=== PATIENT | female | born 1960 | race Caucasian/White ===

== ENCOUNTER → 2016-04-21 | Outpatient (CLI) | payer BC ==
[~2016-04-21] MED LIST: ACET-1256 PO; ACET-1311 PO; ALBU18002 INH; ALBU1AER9 INH; ALBUAER INH; ALPH150C PO; B-COTAB53 PO; BENEFIBER PO; CARI350T27 PO; CHOL100027 PO; CHOL1CAP13 PO; CPRDOTS OTB; CYAN100073 PO; DICY10CA55 PO; DLN100 PO; DULO60CA44 PO; FLUT0.0529 NAE; FLUT0.15 NAE; FLUV100T12 PO; GABA-113 PO; LACT3000 PO; LAMO200T38 PO; LISI10TA PO; LSN5 PO; MECL1TAB42 PO; META1TAB22 PO; MULT-506 PO; NRN/300 PO; NSNN50 NAE; NXM/40 PO; POTA10CA28 PO; RIFA550T2 PO; TELM80TA4 PO; TRMCR180 TOP; TYLER650 PO; VNTHFA/IN INH; ZNTT/150 PO
[2016-04-21 11:52] LABS: BASO % 0.5 %; BASO ABS # 0.03 K/uL (0-0.2); COMPLETE YES; EOS % 1.6 %; HEMATOCRIT 41.2 % (37-47); IG% 0.2 %; LYMPH % 21.5 %; LYMPH ABS # 1.22 K/uL (1.2-3.4); MEAN CELL VOLUME 86.4 fL (80-100); MEAN CORPUSCULAR HEMOGLOBIN 30.2 pg (25-34); MEAN PLATELET VOLUME 10.9 fL (7.4-10.4); MONO % 7.1 %; NEUT % 69.1 %; PLATELET COUNT 219 K/uL (130-400); RED BLOOD COUNT 4.77 M/uL (4.2-5.4); WHITE BLOOD COUNT 5.67 K/uL (4.8-10.8)
[2016-04-21 11:59] LABS: ESTIMATED AVERAGE GLUCOSE 100 mg/dl; HA1C FLAG Normal (Normal)
[2016-04-21 12:15] LABS: BLOOD UREA NITROGEN 13 mg/dl (7-18); BUN/CREATININE RATIO 18.9 (10-20); CALCIUM 9.3 mg/dl (8.5-10.1); CARBON DIOXIDE 25 mmol/L (21-32); CHLORIDE 108 mmol/L (98-107); GLUCOSE 82 mg/dl (70-99); POTASSIUM 3.8 mmol/L (3.5-5.1); SODIUM 143 mmol/L (136-145)
[2016-04-21 13:33] LABS: LYME DISEASE AB IGG NEG (NEG); LYME DISEASE AB IGM NEG (NEG)
[2016-04-23 02:16] LABS: RAPID PLASMA REAGIN NONREACTIVE (NONREACT)
[2016-04-27 04:37] LABS: ACETYLCHOLINE RECEP MODULATING <1; ACETYLCHOLINE RECEPT BLOCKING <15 % inhibit (<15); ALBUMIN 4.4 G/DL (3.8-4.8); ANTI-CENTROMERE AB <1.0 NEG AI (<1.0 NEG); ANTI-SS-A <1.0 NEG AI (<1.0 NEG); ANTI-SS-B <1.0 NEG AI (<1.0 NEG); DNA ds CRITHIDIA NEGATIVE (NEGATIVE); GAMMA GLOBULIN 0.8 G/DL (0.8-1.7); LEAD BLOOD LESS THAN 1 MCG/DL (0-9); MICROSOMAL AB 56 IU/ML (<9); RECEPTOR BINDING AB <0.30 nmol/L (<=0.30); Sm Antibody <1.0 NEG AI (<1.0 NEG); VIT B1 PLASMA(THIAMIN)**90353 10 nmol/L (8-30); VITAMIN B6** TC 926 15.3 ng/mL (2.1-21.7)
[2016-04-27 16:37] LABS: VIT E ALPHA-TOCOPHEROL 10.2 mg/L (5.7-19.9); VIT E BETA&GAMMA-TOCOPHEROL 1.9 mg/L (<=4.3)
[2016-04-28 02:16] LABS: COBALT 24HR URINE (HMG) 0 mcg/L (< 3); THALLIUM 24 HR URINE 0 mcg/L (< 3)
== END | disposition home or self-care (01) ==
LOC: C.LAB1850 09:25
PROVIDERS: ATTEND Psychiatry & Neurology Neurology
DX: R41.3 Other amnesia (principal); M25.50 Pain in unspecified joint; R53.82 Chronic fatigue, unspecified; G62.9 Polyneuropathy, unspecified; R20.0 Anesthesia of skin; E55.9 Vitamin D deficiency, unspecified

== ENCOUNTER → 2016-05-03 | Outpatient (CLI) | payer BC ==
--- NOTE | 2016-05-03 12:47 | MAMMOGRAPHY REPORT ---
BILATERAL DIGITAL DIAGNOSTIC MAMMOGRAM TOMOSYNTHESIS WITH CAD: 05/03/2016 CLINICAL HISTORY: 55-year-old woman presents after a left breast stereotactic biopsy yielded benign results. She presents for routine screening of the right breast and to follow up probably benign mi crocalcifications in the medial anterior left breast. TECHNIQUE: Bilateral breast tomosynthesis in addition to standard 2D mammography was performed. Spo t magnification left CC and ML views were also obtained. Current study was also evaluated with a mgMEDIAuter Aided Detection (CAD) system. COMPARISON: Comparison is made to exams dated: 11/03/2015 mammogram, 10/12/2015 mammogram, 04/14/2015 m ammogram, 04/07/2015 mammogram - [facility], and 03/19/2007. BREAST COMPOSITION: There are scattered areas of fibroglandular density in both breasts. FINDINGS: There is a stable dumbbell-shaped metallic biopsy marker in the approximate 2:00 anterior left breast. There is a stable lobulated 10 x 5 mm mass with associated faint punctate microcalcifi cations in the upper inner quadrant of the left breast. The microcalcifications are unchanged based on the spot magnification views comparing back to 04/14/2015 the morphology is similar to the biops ied cluster in the lateral breast which yielded benign pathology. These most likely represent fibro cystic changes. No new suspicious mass, architectural distortion or cluster of microcalcifications is seen bilaterally. IMPRESSION: ACR BI-RADS CATEGORY 2: BENIGN Stable mammographic appearance of the breasts, including a stable faint punctate grouping of microca lcifications associated with a benign appearing mass in the medial anterior left breast. This is th ought to correlate with a cyst clusters seen on prior ultrasound and is considered benign. There is no mammographic evidence of malignancy. A 1 year bilateral screening mammogram is recommended. Th e patient has been verbally notified of the results. Approximately 10% of breast cancers are not detected with mammography. A negative mammographic repor t should not delay biopsy if a clinically suggestive mass is present. Porsche Kim M.D. ay/:05/03/2016 12:00:01 Boiler Room Helper: Gertrudis BABCOCK(Yumiko)(Elizabeth), [facility] letter sent: Normal 1/2 BI-RADS Code: ACR BI-RADS Category 2: Benign
== END | disposition home or self-care (01) ==
LOC: C.MAMM 10:40
PROVIDERS: ATTEND Family Medicine
DX: R92.0 Mammographic microcalcification found on diagnostic imaging of breast (principal)

== ENCOUNTER 2016-08-01 11:36 | Emergency (ER) | payer BC ==
[~2016-08-01] VITALS: Ht 170.2 cm; Wt 119.0 kg
[~2016-08-01 11:36] MED LIST changes: -ACET-1256 PO; -ACET-1311 PO; -ALBU18002 INH; -ALPH150C PO; -B-COTAB53 PO; -CHOL1CAP13 PO; -CYAN100073 PO; -DULO60CA44 PO; -FLUT0.15 NAE; -GABA-113 PO; -LACT3000 PO; -LISI10TA PO; -LSN5 PO; -MECL1TAB42 PO; -NRN/300 PO; -POTA10CA28 PO; -TRMCR180 TOP; -TYLER650 PO; -VNTHFA/IN INH; -ZNTT/150 PO
[2016-08-01 11:41] VITALS: TEMP 36.8; Ht 170.2 cm; Wt 119.0 kg
[2016-08-01] MEDS ORDERED: ALUMINUM/MAGNESIUM SUSP 30 ML UDC PO STA (13:36)
[2016-08-01] MEDS ORDERED: LIDOCAINE HCL 2% VISC SOLN 20 ML UDC PO STA (13:36)
[2016-08-01 14:03] LABS: BASO % 0.6 %; BASO ABS # 0.03 K/uL (0-0.2); COMPLETE YES; EOS % 1.6 %; HEMATOCRIT 39.6 % (37-47); IG% 0.2 %; LYMPH % 27.7 %; LYMPH ABS # 1.39 K/uL (1.2-3.4); MEAN CELL VOLUME 88.4 fL (80-100); MEAN CORPUSCULAR HEMOGLOBIN 30.1 pg (25-34); MEAN CORPUSCULAR HGB CONC 34.1 g/dl (32-36); MEAN PLATELET VOLUME 10.9 fL (7.4-10.4); MONO % 6.8 %; NEUT % 63.1 %; PLATELET COUNT 235 K/uL (130-400); RED BLOOD COUNT 4.48 M/uL (4.2-5.4); WHITE BLOOD COUNT 5.01 K/uL (4.8-10.8)
[2016-08-01 14:04] LABS: POINT OF CARE PRO-BNP 264 pg/ml (0-900); POINT OF CARE TROPONIN I < 0.030 ng/ml (0-0.045)
--- NOTE | 2016-08-01 14:06 | DIAGNOSTIC IMAGING REPORT ---
SINGLE VIEW CHEST CLINICAL HISTORY: Atypical chest pain. FINDINGS: An AP, portable, upright chest radiograph is compared to study dated 02/14/2012. The examination is degraded by portable technique and patient rotation. The cardiomediastinal silhouette is unremarkable. Chronic interstitial thickening is similar to previous. There is minimal bibasilar atelectasis. The lungs and pleural spaces are otherwise clear. No pneumothorax is seen. The skeletal structures appear osteopenic. The bony thorax is grossly intact. IMPRESSION: No acute cardiopulmonary abnormality. Electronically signed by: Tripp Galvan M.D. 08/01/2016 2:04 PM Dictated Date/Time: 08/01/2016 2:03 PM
[2016-08-01 14:09] LABS: BUN/CREATININE RATIO 16.5 (10-20); CALCIUM 8.3 mg/dl (8.5-10.1); CREATININE 0.68 mg/dl (0.60-1.20); POTASSIUM 3.5 mmol/L (3.5-5.1)
[2016-08-01 14:19] LABS: CKMB/CK RATIO 1.1 (0-3.0); THYROID STIMULATING HORMONE 2.43 uIu/ml (0.300-4.500)
[2016-08-01] MEDS ORDERED: VNTHFA/IN INH (14:46)
[2016-08-01] MEDS ORDERED: FLUT0.15 NAE (14:46)
--- NOTE | 2016-08-01 14:46 | EMERGENCY ROOM VISIT NOTE ---
History Report prepared by Litzy: Glo Manzo Under the Supervision of: Dr. Emperatriz Montilla M.D. First contact with patient: 12:38 Chief Complaint: SWELLING TO EXTREMITY Stated Complaint: SWELLING TO BOTH LEGS, CP, NOT FEELING WELL History of Present Illness The patient is a 55 year old female who presents to the Emergency Room with complaints of intermittent bilateral lower extremity edema that started 2 weeks ago. The patient had knee surgery 8 weeks ago which she tolerated well. She is not taking anything for pain. The patient states that the edema is worse after she is on her feet all day at work. She works at [employer]. The patient states that she has experienced the edema only since she started going back to work 2 weeks ago. She is also experiencing increased sweating since she's been back to work. 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 The patient started experiencing chest tightness 5 days ago. She is also experiencing nausea after being on her feet at work for a prolonged amount of time. The patient denies any shortness of breath with exertion, but she states that she gets fatigued quickly. The patient called her PCP's office, but they recommended coming into the ED to rule out blood clots. Source of History: patient Onset: 2 weeks ago Position: leg (bilateral) Quality: other (edema) Timing: intermittent Modifying Factors (Worsening): other (standing at work) Associated Symptoms: + chest pain (tightness), + fatigue, No SOB Note: increased sweating while at work Review of Systems See HPI for pertinent positives & negatives. A total of 10 systems reviewed and were otherwise negative. Past Medical & Surgical Medical Problems: (1) Asthma (2) ATTN DEFICIT W HYPERACT (3) Bilateral tubal ligation (4) Carpal tunnel syndrome (5) Fatty liver (6) History of - section (7) Obsessive-compulsive disorder Family History Cancer Heart disease Hypertension Lung disease Social History Smoking Status: Never Smoker Marital Status: Housing Status: lives with family Occupation Status: employed Current/Historical Medications Scheduled Acetaminophen (Tylenol), 325 MG PO BID Albuterol Hfa (Ventolin Hfa), 2-4 PUFFS INH Q6H Cholecalciferol (Vitamin D 1000 Unit), 2,000 INTER.UNIT PO DAILY Duloxetine Hcl (Cymbalta), 1 CAP PO DAILY Esomeprazole Magnesium (Nexium), 40 MG PO DAILY Potassium Chloride (Micro-K Ext Rel), 10 MEQ PO BID Scheduled PRN Metaxalone (Skelaxin), 800 MG PO TID PRN for MUSCLE SPASMS Miscellaneous Medications Cyanocobalamin (B12) Fluticasone Propionate (Nasal) (Flonase Allergy Relief) Allergies Coded Allergies: No Known Allergies (Unverified , 02/14/12) Physical Exam Vital Signs Date Time Temp Pulse Resp B/P (MAP) Pulse Ox O2 Delivery O2 Flow Rate FiO2 08/01/16 15:09 74 18 140/97 97 Room Air 08/01/16 14:31 76 18 134/91 95 Room Air 08/01/16 13:03 84 18 137/83 97 Room Air 08/01/16 12:30 80 08/01/16 11:41 36.8 88 20 176/103 98 Room Air Physical Exam Vital signs reviewed. General: Well-appearing female, in no significant distress. HEENT: No scleral icterus, PERRLA, neck supple. Atraumatic. Cardiovascular: Regular rate and rhythm, no extra sounds. Pulmonary: Clear to auscultation bilaterally, normal work of breathing. Abdomen: Soft, obese, nontender, nondistended, positive bowel sounds. Musculoskeletal: Atraumatic, minimal nonpitting edema to bilateral lower extremities, no peripheral edema. Neurologic: Patient awake alert and oriented x 3, full strength in all 4 extremities. Cranial nerves 2 through 12 grossly intact. Skin: Warm, dry, no rash Medical Decision & Procedures ER Provider Diagnostic Interpretation: Radiology results as stated below per my review and radiologist interpretation: SINGLE VIEW CHEST FINDINGS: An AP, portable, upright chest radiograph is compared to study dated 02/14/2012. The examination is degraded by portable technique and patient rotation. The cardiomediastinal silhouette is unremarkable. Chronic interstitial thickening is similar to previous. There is minimal bibasilar atelectasis. The lungs and pleural spaces are otherwise clear. No pneumothorax is seen. The skeletal structures appear osteopenic. The bony thorax is grossly intact. IMPRESSION: No acute cardiopulmonary abnormality. Electronically signed by: Tripp Galvan M.D. 08/01/2016 2:04 PM Dictated Date/Time: 08/01/2016 2:03 PM BILATERAL LOWER EXTREMITY VENOUS DOPPLER FINDINGS: There is normal compressibility, flow, and augmentation within the bilateral lower extremity deep venous systems. IMPRESSION: No DVT within the right or left lower extremity. Electronically signed by: Timothy Enamorado M.D. 08/01/2016 3:01 PM Dictated Date/Time: 08/01/2016 3:00 PM Laboratory Results 08/01/16 11:55 Red Blood Count 4.48, Mean Corpuscular Volume 88.4, Mean Corpuscular Hemoglobin 30.1, Mean Corpuscular Hemoglobin Concent 34.1, Mean Platelet Volume 10.9, Neutrophils (%) (Auto) 63.1, Lymphocytes (%) (Auto) 27.7, Monocytes (%) (Auto) 6.8, Eosinophils (%) (Auto) 1.6, Basophils (%) (Auto) 0.6, Neutrophils # (Auto) 3.16, Lymphocytes # (Auto) 1.39, Monocytes # (Auto) 0.34, Eosinophils # (Auto) 0.08, Basophils # (Auto) 0.03 08/01/16 11:55 Test 08/01/16 11:55 08/01/16 13:45 08/01/16 14:30 White Blood Count 5.01 K/uL (4.8-10.8) Red Blood Count 4.48 M/uL (4.2-5.4) Hemoglobin 13.5 g/dL (12.0-16.0) Hematocrit 39.6 % (37-47) Mean Corpuscular Volume 88.4 fL (80-100) Mean Corpuscular Hemoglobin 30.1 pg (25-34) Mean Corpuscular Hemoglobin Concent 34.1 g/dl (32-36) Platelet Count 235 K/uL (130-400) Mean Platelet Volume 10.9 fL (7.4-10.4) Neutrophils (%) (Auto) 63.1 % Lymphocytes (%) (Auto) 27.7 % Monocytes (%) (Auto) 6.8 % Eosinophils (%) (Auto) 1.6 % Basophils (%) (Auto) 0.6 % Neutrophils # (Auto) 3.16 K/uL (1.4-6.5) Lymphocytes # (Auto) 1.39 K/uL (1.2-3.4) Monocytes # (Auto) 0.34 K/uL (0.11-0.59) Eosinophils # (Auto) 0.08 K/uL (0-0.5) Basophils # (Auto) 0.03 K/uL (0-0.2) RDW Standard Deviation 40.3 fL (36.4-46.3) RDW Coefficient of Variation 12.6 % (11.5-14.5) Immature Granulocyte % (Auto) 0.2 % Immature Granulocyte # (Auto) 0.01 K/uL (0.00-0.02) Anion Gap 8.0 mmol/L (3-11) Est Creatinine Clear Calc Drug Dose 127.7 ml/min Estimated GFR () 115.7 Estimated GFR (Non- 99.9 BUN/Creatinine Ratio 16.5 (10-20) Calcium Level 8.3 mg/dl (8.5-10.1) Total Bilirubin 0.4 mg/dl (0.2-1) Direct Bilirubin 0.1 mg/dl (0-0.2) Aspartate Amino Transf (AST/SGOT) 14 U/L (15-37) Alanine Aminotransferase (ALT/SGPT) 22 U/L (12-78) Alkaline Phosphatase 113 U/L (45-117) Total Creatine Kinase 85 U/L (26-192) Creatine Kinase MB 0.9 ng/ml (0.5-3.6) Creatine Kinase MB Ratio 1.1 (0-3.0) Total Protein 7.0 gm/dl (6.4-8.2) Albumin 3.8 gm/dl (3.4-5.0) Thyroid Stimulating Hormone (TSH) 2.430 uIu/ml (0.300-4.500) Bedside Troponin I < 0.030 ng/ml (0-0.045) RA-Qbr-N-Type Natriuretic Peptide 264 pg/ml (0-900) Urine Color YELLOW Urine Appearance CLEAR (CLEAR) Urine pH 6.0 (4.5-7.5) Urine Specific Depue 1.011 (1.000-1.030) Urine Protein NEG (NEG) Urine Glucose (UA) NEG (NEG) Urine Ketones NEG (NEG) Urine Occult Blood NEG (NEG) Urine Nitrite NEG (NEG) Urine Bilirubin NEG (NEG) Urine Urobilinogen NEG (NEG) Urine Leukocyte Esterase NEG (NEG) Laboratory results per my review. Medications Administered Medications (Trade) Dose Ordered Sig/Alejandro Route Start Time Stop Time Status Last Admin Dose Admin Lidocaine HCl (Viscous Lidocaine 2% Soln) 10 ml NOW STAT PO 08/01/16 13:36 08/01/16 13:40 DC 08/01/16 13:54 10 ML Al Hydroxide/Mg Hydroxide (Maalox Susp) 30 ml NOW STAT PO 08/01/16 13:36 08/01/16 13:40 DC 08/01/16 13:54 30 ML ECG Indication: chest pain Rate (beats per minute): 90 Rhythm: normal sinus Findings: T-wave inversion (Inferior), no ectopy Comparison ECG Date: 06/18/2015 Change: no significant change ED Course 1334: Past medical records reviewed. The patient was evaluated in room A12. A complete history and physical examination was performed. 1336: Ordered Maalox Susp 30 ml PO, Lidocaine HCl 10 ml PO 1510: Upon reevaluation, the patient appeared to have improvement of her symptoms. I discussed findings with her. She verbalized agreement of the treatment plan. She was discharged home. Medical Decision Differentials include medication-induced nausea, gastritis, peptic ulcer disease , fluid retention, renal failure, DVT, PE. Medication Reconciliation: I attest that I have personally reviewed the patient' s current medication list. Blood Pressure Screening: Patient was found to have an elevated blood pressure and was referred to their primary doctor for recheck and further treatment. This pt was evaluated and appeared to be in no distress. IV access was obtained and lab work was drawn. Pt was placed on the manager site. US BLE were negative for DVT. Lab work is fairly unrevealing. EKG reveals no significant changes from previous. CXR is clear. Pt was informed of the findings. I suspect she is experiencing dependent edema since return to work, where she stands on her feet. She will wear compression socks and elevated her legs when possible. Pt was asked to f/u with PCP for possible stress testing if indicated She was d/c to the care of her and will return to the ED for worsening of symptoms or any medical concerns. Impression Primary Impression: Peripheral edema Additional Impression: Hypertension Scribe Attestation The scribe's documentation has been prepared under my direction and personally reviewed by me in its entirety. I confirm that the note above accurately reflects all work, treatment, procedures, and medical decision making performed by me. Departure Information Dispostion Home / Self-Care Referrals Lynn Mcclain DO (PCP) Forms HOME CARE DOCUMENTATION FORM, IMPORTANT VISIT INFORMATION, WORK / SCHOOL INSTRUCTIONS Patient Instructions My [facility] Additional Instructions Diagnosis: Peripheral edema, hypertension Please follow-up with your primary care physician for blood pressure recheck and medications if indicated. Continue your other medications as prescribed, avoid aspirin, ibuprofen, Aleve. Wear compression knee high socks (such as Jobst socks or graduated running socks ) while on your feet for prolonged periods of time. Minimize the salt in your diet. Return to the emergency department for worsening of symptoms or any medical concerns. Problem Qualifiers Additional Impression: Hypertension Hypertension type: unspecified secondary hypertension Qualified Codes: I15.9 - Secondary hypertension, unspecified
[2016-08-01] MEDS ORDERED: ACET-1311 PO (14:47)
[2016-08-01] MEDS ORDERED: DULO60CA44 PO (14:47)
[2016-08-01] MEDS ORDERED: CYAN100073 PO (14:47)
[2016-08-01] MEDS ORDERED: POTA10CA28 PO (14:47)
[2016-08-01 14:50] LABS: URINE APPEARANCE CLEAR (CLEAR); URINE BILIRUBIN NEG (NEG); URINE COLOR YELLOW; URINE NITRITE NEG (NEG); URINE SPECIFIC GRAVITY 1.011 (1.000-1.030); UROBILINOGEN NEG (NEG); ZZUR CULT IF INDIC CLEAN CATCH NO
[2016-08-01 14:59] LABS: MANUAL MICROSCOPIC REQUIRED? NO; REVIEW REQ? NO
--- NOTE | 2016-08-01 15:02 | DIAGNOSTIC IMAGING REPORT ---
BILATERAL LOWER EXTREMITY VENOUS DOPPLER HISTORY: Pain. Edema. DVT COMPARISON STUDY: None. FINDINGS: There is normal compressibility, flow, and augmentation within the bilateral lower extremity deep venous systems. IMPRESSION: No DVT within the right or left lower extremity. Electronically signed by: Timothy Enamorado M.D. 08/01/2016 3:01 PM Dictated Date/Time: 08/01/2016 3:00 PM
[2016-08-01 15:09] VITALS: BP 140/97; PULSE 74; O2SAT 97
[2016-10-05] MEDS ORDERED: NRN/300 PO (15:22)
[2016-10-05] MEDS ORDERED: ALPH150C PO (15:22)
[2016-10-05] MEDS ORDERED: B-COTAB53 PO (15:22)
[2016-10-05] MEDS ORDERED: MECL1TAB42 PO (15:22)
[2016-10-05] MEDS ORDERED: LISI10TA PO (15:22)
[2016-10-05] MEDS ORDERED: ACET-1256 PO (15:22)
== END 2016-08-01 15:16 | disposition home or self-care (01) ==
LOC: C.EDB 11:37 → C.EDA 15:16
DX: R60.0 Localized edema (principal); I15.9 Secondary hypertension, unspecified; J45.909 Unspecified asthma, uncomplicated; F90.9 Attention-deficit hyperactivity disorder, unspecified type; F42.9 Obsessive-compulsive disorder, unspecified; Z80.9 Family history of malignant neoplasm, unspecified; Z82.49 Family history of ischemic heart disease and other diseases of the circulatory system; Z83.6 Family history of other diseases of the respiratory system; Z79.899 Other long term (current) drug therapy

== ENCOUNTER → 2016-08-18 | Outpatient (CLI) | payer BC ==
[~2016-08-18] MED LIST changes: +ACET-1256 PO; +ACET-1311 PO; +ALBU18002 INH; -ALBU1AER9 INH; -ALBUAER INH; +ALPH150C PO; +B-COTAB53 PO; -BENEFIBER PO; -CARI350T27 PO; +CHOL1CAP13 PO; -CPRDOTS OTB; +CYAN100073 PO; -DICY10CA55 PO; -DLN100 PO; +DULO60CA44 PO; -FLUT0.0529 NAE; +FLUT0.15 NAE; -FLUV100T12 PO; +GABA-113 PO; +LACT3000 PO; -LAMO200T38 PO; +LISI10TA PO; +LSN5 PO; +MECL1TAB42 PO; -MULT-506 PO; +NRN/300 PO; -NSNN50 NAE; +POTA10CA28 PO; -RIFA550T2 PO; -TELM80TA4 PO; +TRMCR180 TOP; +TYLER650 PO; +VNTHFA/IN INH; +ZNTT/150 PO
--- NOTE | 2016-08-18 10:23 | DIAGNOSTIC IMAGING REPORT ---
DOUBLE CONTRAST BARIUM ESOPHAGRAM CLINICAL HISTORY: Dysphagia. COMPARISON STUDY: No priors.. TECHNIQUE: A standard air contrast barium esophagram is performed. Multiple spot images of the esophagus are acquired both upright and prone. FINDINGS: The patient swallowed barium and the barium pill without difficulty. The mucosal pattern is normal. Mild dysmotility seen in the distal third. There is no evidence of intrinsic or extrinsic mass lesion. Pharyngeal penetration was observed without clear evidence of aspiration. Cough was noted. The gastroesophageal junction distended normally. No gastroesophageal reflux could be elicited by having the patient perform the Valsalva maneuver. Fluoroscopy time: 1.1 minutes. Fluoroscopic images: 31 IMPRESSION: 1. The esophagus is morphologically normal. 2. There was pharyngeal penetration without clear evidence of aspiration. Cough was noted. 3. Mild esophageal dysmotility. Electronically signed by: Tripp Galvan M.D. 08/18/2016 10:22 AM Dictated Date/Time: 08/18/2016 10:18 AM
== END | disposition home or self-care (01) ==
LOC: C.RAD 09:46
PROVIDERS: ATTEND Nurse Practitioner Adult Health
DX: R13.10 Dysphagia, unspecified (principal)

== ENCOUNTER 2016-08-21 15:41 | Emergency (ER) | payer BC ==
[~2016-08-21] VITALS: Ht 167.6 cm; Wt 115.8 kg
[~2016-08-21 15:41] MED LIST changes: -ACET-1256 PO; -ALBU18002 INH; -ALPH150C PO; -B-COTAB53 PO; -CHOL1CAP13 PO; -GABA-113 PO; -LACT3000 PO; -LISI10TA PO; -LSN5 PO; -MECL1TAB42 PO; -NRN/300 PO; -TRMCR180 TOP; -TYLER650 PO; -ZNTT/150 PO
[2016-08-21 15:51] VITALS: TEMP 36.8; Ht 167.6 cm; Wt 115.8 kg
[2016-08-21] MEDS ORDERED: LSN5 PO (17:12)
[2016-08-21] MEDS ORDERED: ZNTT/150 PO (17:12)
[2016-08-21] MEDS ORDERED: ALBU18002 INH (17:12)
[2016-08-21] MEDS ORDERED: GABA-113 PO (17:12)
[2016-08-21] MEDS ORDERED: TRMCR180 TOP (17:12)
[2016-08-21] MEDS ORDERED: TYLER650 PO (17:12)
[2016-08-21] MEDS ORDERED: LACT3000 PO (17:12)
[2016-08-21] MEDS ORDERED: CHOL1CAP13 PO (17:12)
--- NOTE | 2016-08-21 17:25 | DIAGNOSTIC IMAGING REPORT ---
LEFT FOOT 3 VIEWS CLINICAL HISTORY: Left foot pain. FINDINGS: 3 views of the left foot are obtained. No prior studies are available for comparison at the time of dictation. The skeletal structures are osteopenic. No fracture is seen. Mild arthritic change is seen at the first tarsometatarsal and metatarsophalangeal joints. An os peroneum and an os naviculari are incidentally noted. Mild degenerative spurring is seen along the dorsal aspect of the tarsal bones. There are large dorsal and plantar calcaneal enthesophytes. Dorsal soft tissue edema is observed. IMPRESSION: 1. Osteopenia, mild arthritic change, and heel spurs as above. No fracture is identified in the left foot. 2. Dorsal soft tissue swelling. Electronically signed by: Tripp Galvan M.D. 08/21/2016 5:24 PM Dictated Date/Time: 08/21/2016 5:22 PM
--- NOTE | 2016-08-21 17:27 | DIAGNOSTIC IMAGING REPORT ---
RIGHT FOOT 3 VIEWS CLINICAL HISTORY: Right foot pain. FINDINGS: 3 views of the right foot are obtained. No prior studies are available for comparison at the time of dictation. The skeletal structures are osteopenic. No fracture is seen. Mild arthritic change is seen at the first tarsometatarsal and metatarsophalangeal joints. There is a large os naviculari. Mild degenerative spurring is seen along the dorsal aspect of the tarsal bones. There are large dorsal and plantar calcaneal enthesophytes. Mild dorsal soft tissue edema is observed. IMPRESSION: 1. Mild soft tissue swelling with no acute bony abnormality seen in the right foot. 2. Osteopenia, mild arthritic change, and heel spurs as above. Electronically signed by: Tripp Galvan M.D. 08/21/2016 5:26 PM Dictated Date/Time: 08/21/2016 5:24 PM
[2016-08-21 18:28] VITALS: PULSE 89; O2SAT 97
[2016-08-21 18:29] VITALS: BP 140/106
--- NOTE | 2016-08-21 20:01 | EMERGENCY ROOM VISIT NOTE ---
History First contact with patient: 16:42 Chief Complaint: FOOT PAIN Stated Complaint: MAY HAVE FRACTURED BOTH FEET,NEUROPATHY History of Present Illness The patient is a 55 year old female who presents to the Emergency Room with complaints of bilateral foot pain worsening over the past few days. The patient states that she has a history of spontaneous fracture to each of her feet in the past. The patient states that she recently had right knee surgery with return to work this week. The patient feels that she has stumbled several times at work the past 2 days, and now has foot pain that feels like she broke her feet. The patient does have a history of neuropathy and takes 650 mg of Tylenol once in the morning and once in the evening. She has not taken any of this in more than 8 hours. She went to work today, and as she was driving home , her pain worsened, so she came to the emergency department. She does not report distinct fall or other injury. She feels more stable when she walks with her crutches. She rates her current discomfort a 6/10 that worsens with ambulation. Review of Systems More than 10 systems were reviewed and otherwise negative with the exception of history of present illness. Past Medical/Surgical History Medical Problems: (1) Asthma (2) ATTN DEFICIT W HYPERACT (3) Bilateral tubal ligation (4) Carpal tunnel syndrome (5) Fatty liver (6) History of - section (7) Obsessive-compulsive disorder Family History Cancer Heart disease Hypertension Lung disease Social History Smoking Status: Never Smoker Marital Status: Housing Status: lives with family Occupation Status: employed Current/Historical Medications Scheduled Acetaminophen (Tylenol Arthitis Ext Rel), 650 MG PO BID Cholecalciferol (D3), 2,000 UNITS PO QAM Cyanocobalamin (B12), 1,000 MCG PO QAM Duloxetine Hcl (Cymbalta), 1 CAP PO QPM Fluticasone Propionate (Nasal) (Flonase Allergy Relief), 1 SPRAY GIRISH DAILY Gabapentin (Neurontin), 300 MG PO BID AT 1200 & HS Lisinopril (Lisinopril), 5 MG PO QPM Ranitidine (Zantac), 150 MG PO BID Scheduled PRN Albuterol Sulfate (Proair Respiclick), 2 PUFFS INH DAILY PRN for Shortness of Breath Lactase (Lactaid), 1 TAB PO DIRECTED PRN for LACTOSE PRODUCTS Metaxalone (Skelaxin), 800 MG PO TID PRN for MUSCLE SPASMS Triamcinolone Acet (Aristocort 0.1%), 1 APPLN TOP DIRECTED PRN for SKIN AREAS Allergies Coded Allergies: Latex1 -Allergic Contact Dermititis (Verified Allergy, Intermediate, REDDENED RASH, 08/21/16) Physical Exam Vital Signs Date Time Temp Pulse Resp B/P (MAP) Pulse Ox O2 Delivery O2 Flow Rate FiO2 08/21/16 18:29 140/106 08/21/16 18:28 89 16 140/114 97 Room Air 08/21/16 15:51 36.8 93 18 132/79 94 Room Air Pain Rating (0-10): 5.0 Physical Exam VITALS: Vitals are noted on the nurse's note and reviewed by myself. Vital signs stable. GENERAL: Well-developed, well-nourished, white female, who is in no acute distress and resting comfortably. Patient is cooperative with the examination. HEART: Regular rate and rhythm without murmurs gallops or rubs. LUNGS: Clear to auscultation bilaterally without wheezes, rales or rhonchi. No retractions or accessory muscle use. MUSCULOSKELETAL: No laceration, abrasion, or gross deformity of the bilateral feet. There is mild tenderness throughout the superior mid foot of the left foot. There is no plantar aspect tenderness bilaterally. No tenderness throughout the heels or ankles. No gross cellulitis or other evidence of infection. NEURO: Patient was alert and oriented to person place and time. CN II through XII grossly intact. Medical Decision & Procedures ER Provider Diagnostic Interpretation: RIGHT FOOT 3 VIEWS CLINICAL HISTORY: Right foot pain. FINDINGS: 3 views of the right foot are obtained. No prior studies are available for comparison at the time of dictation. The skeletal structures are osteopenic. No fracture is seen. Mild arthritic change is seen at the first tarsometatarsal and metatarsophalangeal joints. There is a large os naviculari. Mild degenerative spurring is seen along the dorsal aspect of the tarsal bones. There are large dorsal and plantar calcaneal enthesophytes. Mild dorsal soft tissue edema is observed. IMPRESSION: 1. Mild soft tissue swelling with no acute bony abnormality seen in the right foot. 2. Osteopenia, mild arthritic change, and heel spurs as above. LEFT FOOT 3 VIEWS CLINICAL HISTORY: Left foot pain. FINDINGS: 3 views of the left foot are obtained. No prior studies are available for comparison at the time of dictation. The skeletal structures are osteopenic. No fracture is seen. Mild arthritic change is seen at the first tarsometatarsal and metatarsophalangeal joints. An os peroneum and an os naviculari are incidentally noted. Mild degenerative spurring is seen along the dorsal aspect of the tarsal bones. There are large dorsal and plantar calcaneal enthesophytes. Dorsal soft tissue edema is observed. IMPRESSION: 1. Osteopenia, mild arthritic change, and heel spurs as above. No fracture is identified in the left foot. 2. Dorsal soft tissue swelling. ED Course Physical exam and history were performed. Nursing notes and EMR were reviewed. Patient appears to have bilateral foot pain worsening over the past one to 2 days. The patient is concerned that she may have broken her feet, as she does have a history of this in the past. X-rays were obtained of both feet and are without evidence of fracture or dislocation. Overall the patient appears well for discharge home. She should increase her usage of [id number] ibuprofen and Tylenol for pain control. She may continue to use her crutches to help with ambulation. Her left foot feels worse than her right, and she will be given a postop shoe. The patient may follow with her orthopedist or primary care physician for further management. She was otherwise invited back to the ER anytime and voiced understanding of this plan. The chart was completed utilizing [employer] Speech Voice Recognition Software. Grammatical errors, random word insertions, pronoun errors, and incomplete sentences are an occasional consequence of this system due to software limitations, ambient noise, and hardware issues. Any formal questions or concerns about the content, text, or information contained within the body of this dictation should be directly addressed to the provider for clarification. . Medical Decision Differential diagnosis includes, but is not limited to: Sprain, strain, fracture , dislocation, subluxation, contusion, and others Impression Primary Impression: Bilateral foot pain Departure Information Dispostion Home / Self-Care Condition GOOD Forms HOME CARE DOCUMENTATION FORM, IMPORTANT VISIT INFORMATION Patient Instructions [facility] Additional Instructions You were seen and evaluated today on an emergency basis only. This is not a substitute for, or an effort to provide, complete comprehensive medical care. It is not possible to recognize and treat all injuries or illnesses in a single emergency department visit. For this reason it is recommended that you followup with your orthopedist by telephone in the morning to arrange a follow-up appointment. Use your postop shoe for additional relief of symptoms. Use your crutches to help ambulate. For baseline pain relief you may alternate ibuprofen and acetaminophen every 4 hours for pain control. Take 600 mg ibuprofen (Advil) and then 4 hours later take 1000 mg acetaminophen (Tylenol). Do not take more than 3000 mg acetaminophen in a single day. Take every precaution to prevent falling You are welcome to return to the emergency department anytime with new, worsening, or concerning symptoms.
[2016-10-05] MEDS ORDERED: LISI10TA PO (15:22)
[2016-10-05] MEDS ORDERED: B-COTAB53 PO (15:22)
[2016-10-05] MEDS ORDERED: ALPH150C PO (15:22)
[2016-10-05] MEDS ORDERED: ACET-1256 PO (15:22)
[2016-10-05] MEDS ORDERED: MECL1TAB42 PO (15:22)
[2016-10-05] MEDS ORDERED: NRN/300 PO (15:22)
== END 2016-08-21 18:46 | disposition home or self-care (01) ==
LOC: C.EDB 15:42 → C.EDD 18:46
DX: M79.671 Pain in right foot (principal); M79.672 Pain in left foot; J45.909 Unspecified asthma, uncomplicated; F90.9 Attention-deficit hyperactivity disorder, unspecified type; G56.00 Carpal tunnel syndrome, unspecified upper limb; K76.0 Fatty (change of) liver, not elsewhere classified; Z82.49 Family history of ischemic heart disease and other diseases of the circulatory system

== ENCOUNTER → 2016-09-16 | Outpatient (CLI) | payer BC ==
[~2016-09-16] MED LIST changes: +ACET-1256 PO; -ACET-1311 PO; +ALBU18002 INH; +ALPH150C PO; +B-COTAB53 PO; -CHOL100027 PO; +CHOL1CAP13 PO; +GABA-113 PO; +LACT3000 PO; +LISI10TA PO; +LSN5 PO; +MECL1TAB42 PO; +NRN/300 PO; -NXM/40 PO; -POTA10CA28 PO; +TRMCR180 TOP; +TYLER650 PO; -VNTHFA/IN INH; +ZNTT/150 PO
[2016-09-16 12:23] LABS: BLOOD UREA NITROGEN 18 mg/dl (7-18); BUN/CREATININE RATIO 24.5 (10-20); CALCIUM 9.1 mg/dl (8.5-10.1); CARBON DIOXIDE 29 mmol/L (21-32); CHLORIDE 108 mmol/L (98-107); CREATININE 0.75 mg/dl (0.60-1.20); GLUCOSE 83 mg/dl (70-99); POTASSIUM 4.1 mmol/L (3.5-5.1); SODIUM 141 mmol/L (136-145)
[2016-09-16 12:33] LABS: CHOLESTEROL 181 mg/dl (0-200); CHOLESTEROL/HDL RATIO 2.7; HDL CHOLESTEROL 68 mg/dl; LDL CHOLESTEROL CALCULATED 101 mg/dl; TRIGLYCERIDES 60 mg/dl (0-150); VERY LOW DENSITY LIPOPROT CALC 12 mg/dl
== END | disposition home or self-care (01) ==
LOC: C.LAB 09:43
PROVIDERS: ATTEND Nurse Practitioner Adult Health
DX: Z00.00 Encounter for general adult medical examination without abnormal findings (principal); I10 Essential (primary) hypertension; M79.671 Pain in right foot; M79.672 Pain in left foot

== ENCOUNTER → 2016-10-18 | Day surgery (SDC) | payer BC ==
[2016-10-05 15:23] VITALS: Ht 170.2 cm; Wt 113.6 kg
[~2016-10-18] VITALS: Ht 170.2 cm; Wt 113.6 kg
[~2016-10-18] MED LIST changes: +ATROPINE SULFATE 0.1 MG/ML 5ML SYR IV PRN; +EpHEDrine SULFATE INJ 50 MG/ML AMP IV PRN; +LIDOCAINE HCL 2% 2 ML VIAL (20MG/ML) ONE; -LSN5 PO; +MIDAZOLAM HCL 1 MG/ML 2ML VIAL ONE; +ONDANSETRON INJ 2 MG/ML 2 ML VIAL ONE; +PROPOFOL IV EMULSION 10 MG/ML 20 ML VIAL IV ONE; +SODIUM CHLORIDE 0.9% 500ML 500 ML IV ONE; -TYLER650 PO
--- NOTE | 2016-10-18 10:27 | Endo History and Physical ---
History & Physical Date of Service: Oct 18, 2016. Chief Complaint: Abn barium, dysphagia, reflux Referring Physician: Gerda Butcher History of Present Illness 56 yo CF who presents for EGD secondary to abnormal barium swallow, dysphagia and GERD. Past Surgical History Hx Cardiac Surgery: No Hx Internal Defibrillator: No Hx Pacemaker: No Hx Abdominal Surgery: Yes () Hx of Implantable Prosthesis: No Hx Post-Op Nausea and Vomiting: No Hx Cancer Surgery: No Hx Thoracic Surgery: No Hx Orthopedic: Yes (RT CTR, RT ELBOW SURGERY, LT/RT KNEE SURGERY) Hx Urinary Tract Surgery: Yes (BLADDER RESHAPING AGE 24 YEARS OLD) Family History IBD Social History Smoking Status: Never Smoker Hx Substance Use: No Hx Alcohol Use: No Allergies Coded Allergies: Latex1 -Allergic Contact Dermititis (Verified Allergy, Intermediate, REDDENED RASH, 10/05/16) Milk (Verified Allergy, Unknown, DIARRHEA, 10/05/16) NO KNOWN DRUG ALLERGIES (Verified Allergy, Unknown, ., 10/05/16) Current Medications Reported Home Medications Medications Dose Route/Sig Max Daily Dose Days Date Category Lipoic Acid (Alpha-Lipoic Acid (Thioctic Ac) 150 Mg Cap 1 Cap PO QAM 10/05/16 Reported B Complex (B-Complex W/ Folic Acid) 1 Tab Tab 1 Tab PO QAM 10/05/16 Reported Tylenol (Acetaminophen) 500 Mg Tab 1-2 Tabs PO Q4-6H PRN 10/05/16 Reported Meclizine Hcl 25 Mg Tab 1 Tab PO TID PRN 10/05/16 Reported Neurontin (Gabapentin) 300 Mg Cap 2 Cap PO HS 10/05/16 Reported Prinivil (Lisinopril) 10 Mg Tab 10 Mg PO QPM 10/05/16 Reported Aristocort 0.1% (Triamcinolone Acet) 240 Appln/80 Gm Cr 1 Appln TOP DIRECTED PRN 08/21/16 Reported Lactaid (Lactase) 3,000 Unit Tab 1 Tab PO UD PRN 08/21/16 Reported Proair Respiclick (Albuterol Sulfate) 108 Mcg/Act Aer 2 Puffs INH DAILY PRN 08/21/16 Reported Zantac (Ranitidine HCl) 150 Mg Tab 150 Mg PO BID 08/21/16 Reported Neurontin (Gabapentin) 300 Mg Cap 300 Mg PO BID 08/21/16 Reported D3 (Cholecalciferol) 2,000 Unit Cap 2,000 Units PO QAM 08/21/16 Reported Cymbalta (Duloxetine Hcl) 60 Mg Cap 1 Cap PO QPM 08/01/16 Reported B12 (Cyanocobalamin) 1,000 Mcg Tab 1,000 Mcg PO QAM 08/01/16 Reported Flonase Allergy Relief (Fluticasone Propionate (Nasal)) 50 Mcg/Act Spr 1 [place] GIRISH DAILY PRN 08/01/16 Reported Skelaxin (Metaxalone) 800 Mg Tab 800 Mg PO TID PRN 06/26/13 Reported Vital Signs Weight (Kilograms): 113.64 Height (Feet): 5 Height (Inches): 7 Date Time Temp Pulse Resp B/P (MAP) Pulse Ox O2 Delivery O2 Flow Rate FiO2 10/18/16 10:19 37 80 20 147/95 (112) 98 Room Air Physical Exam General Appearance: WD/WN, no apparent distress Respiratory/Chest: Auscultation: breath sounds normal Cardiovascular: Heart Auscultation: RRR Abdomen: Bowel Sounds: normal Inspection & Palpation: soft, non-distended, no tenderness, guarding & rebound Assessment and Plan Assessment: 56 yo CF who presents for EGD secondary to abnormal barium swallow, dysphagia and GERD. Plan: Proceed with colonoscopy.
--- NOTE | 2016-10-18 10:49 | Discharge Instructions ---
Endoscopy Patient Instructions Date / Procedure(s) Performed Oct 18, 2016. EGD Allergy Information Coded Allergies: Latex1 -Allergic Contact Dermititis (Verified Allergy, Intermediate, REDDENED RASH, 10/05/16) Milk (Verified Allergy, Unknown, DIARRHEA, 10/05/16) NO KNOWN DRUG ALLERGIES (Verified Allergy, Unknown, ., 10/05/16) Discharge Date / Findings Oct 18, 2016. Hiatal hernia Mid-esophageal biopsies Medication Instructions OK to resume all medications today as prescribed Reported Home Medications Medications Dose Route/Sig Max Daily Dose Days Date Category Lipoic Acid (Alpha-Lipoic Acid (Thioctic Ac) 150 Mg Cap 1 Cap PO QAM 10/05/16 Reported B Complex (B-Complex W/ Folic Acid) 1 Tab Tab 1 Tab PO QAM 10/05/16 Reported Tylenol (Acetaminophen) 500 Mg Tab 1-2 Tabs PO Q4-6H PRN 10/05/16 Reported Meclizine Hcl 25 Mg Tab 1 Tab PO TID PRN 10/05/16 Reported Neurontin (Gabapentin) 300 Mg Cap 2 Cap PO HS 10/05/16 Reported Prinivil (Lisinopril) 10 Mg Tab 10 Mg PO QPM 10/05/16 Reported Aristocort 0.1% (Triamcinolone Acet) 240 Appln/80 Gm Cr 1 Appln TOP DIRECTED PRN 08/21/16 Reported Lactaid (Lactase) 3,000 Unit Tab 1 Tab PO UD PRN 08/21/16 Reported Proair Respiclick (Albuterol Sulfate) 108 Mcg/Act Aer 2 Puffs INH DAILY PRN 08/21/16 Reported Zantac (Ranitidine HCl) 150 Mg Tab 150 Mg PO BID 08/21/16 Reported Neurontin (Gabapentin) 300 Mg Cap 300 Mg PO BID 08/21/16 Reported D3 (Cholecalciferol) 2,000 Unit Cap 2,000 Units PO QAM 08/21/16 Reported Cymbalta (Duloxetine Hcl) 60 Mg Cap 1 Cap PO QPM 08/01/16 Reported B12 (Cyanocobalamin) 1,000 Mcg Tab 1,000 Mcg PO QAM 08/01/16 Reported Flonase Allergy Relief (Fluticasone Propionate (Nasal)) 50 Mcg/Act Spr 1 [place] GIRISH DAILY PRN 08/01/16 Reported Skelaxin (Metaxalone) 800 Mg Tab 800 Mg PO TID PRN 06/26/13 Reported Provider Instructions Activity Restrictions - No exercising or heavy lifting for 24 hours. - Do not drink alcohol the day of the procedure. - Do not drive a car or operate machinery until the day after the procedure. - Do not make any important decisions or sign important papers in 24 hours after the procedure. Following Day: - Return to full activity which may include returning to work/school. Diet Start your diet with liquids and light foods (jello, soup, juice, toast). Then eat your usual diet if not nauseated. Treatment For Common After Affects For mild abdominal pain, bloating, or excessive gas: - Rest - Eat lightly - Lie on right side Follow-Up Information Follow-up with Gerda Butcher as scheduled Anesthesia Information What You Should Know You have had a procedure that required some medicine to reduce anxiety and discomfort. This treatment is called moderate sedation. After receiving the treatment, you may be sleepy, but you will be able to breathe on your own. The effects of the treatment may last for several hours. Follow these instructions along with Activity/Diet recommendations noted above: * Do NOT do anything where dizziness or clumsiness would be dangerous. * Rest quietly at home today, then you can be up and about tomorrow. * Have a responsible person stay with you the rest of today. * You may have had an I.V. today. If so, you may take the dressing off later today. Recommendations Call your doctor if: * Trouble breathing * Continuous vomiting for more than 24 hours * Temperature above 101 degrees * Severe abdominal pain or bloating * Pain not relieved by pain medicine ordered * There is increased drainage or redness from any incision * A large amount of rectal bleeding greater than 2-3 tablespoons. (If you had a polyp/s removed or have hemorrhoids, a small amount of blood - from the rectum is to be expected.) * You have any unanswered questions or concerns. IN THE EVENT OF A SERIOUS EMERGENCY, GO TO THE NEAREST EMERGENCY ROOM Your discharge instructions were prepared by provider Eric Garcia. Patient Instructions Signature Page Madelyn Alfaro Patient (or Guardian) Signature/Date: I have read and understand the instructions given to me by my caregivers. Caregiver/RN/Doctor Signature/Date: The above-named patient and/or guardian has received patient instructions on this date. + Original Patient Signature Page (only) stays with chart. Please make copy for patient.
--- NOTE | 2016-10-18 10:56 | GI REPORT ---
Procedure Date: 10/18/2016 10:21 AM Procedure: Upper GI endoscopy Indications: Dysphagia Medicines: Monitored Anesthesia Care Complications: No immediate complications. Estimated Blood Loss: Estimated blood loss: none. Procedure: Pre-Anesthesia Assessment: - Prior to the procedure, a History and Physical was performed, and patient medications and allergies were reviewed. The patient's tolerance of previous anesthesia was also reviewed. The risks and benefits of the procedure and the sedation options and risks were discussed with the patient. All questions were answered, and informed consent was obtained. Prior Anticoagulants: The patient has taken no previous anticoagulant or antiplatelet agents. ASA Grade Assessment: II - A patient with mild systemic disease. After reviewing the risks and benefits, the patient was deemed in satisfactory condition to undergo the procedure. After obtaining informed consent, the endoscope was passed under direct vision. Throughout the procedure, the patient's blood pressure, pulse, and oxygen saturations were monitored continuously. The scope was introduced through the mouth, and advanced to the second part of duodenum. The upper GI endoscopy was accomplished without difficulty. The patient tolerated the procedure well. Findings: No endoscopic abnormality was evident in the esophagus to explain the patient's complaint of dysphagia. Biopsies were taken with a cold forceps for histology. A small hiatus hernia was present. The examined duodenum was normal. Impression: - No endoscopic esophageal abnormality to explain patient's dysphagia. Biopsied. - Small hiatus hernia. - Normal examined duodenum. Recommendation: - Resume previous diet. - Continue present medications. - Await pathology results. - Return to primary care physician as previously scheduled. Eric Garcia DO 10/18/2016 10:55:51 AM This report has been signed electronically. Note Initiated On: 10/18/2016 10:21 AM I attest to the content of the Intraoperative Record and orders documented therein, exceptions below
--- NOTE | 2016-10-18 11:22 | Anesthesiology Progress Note ---
Anesthesia Post Op Note Date & Time Oct 18, 2016 at 11:22 Vital Signs Pain Intensity: 0 Vital Signs Past 12 Hours Date Time Temp Pulse Resp B/P (MAP) Pulse Ox O2 Delivery O2 Flow Rate FiO2 10/18/16 11:10 84 20 152/94 (113) 100 Room Air 10/18/16 10:53 87 20 161/92 (115) 97 Room Air 10/18/16 10:19 37 80 20 147/95 (112) 98 Room Air Notes Mental Status: alert / awake / arousable, participated in evaluation Pt Amnestic to Procedure: Yes Nausea / Vomiting: adequately controlled Pain: adequately controlled Airway Patency, RR, SpO2: stable & adequate BP & HR: stable & adequate Hydration State: stable & adequate Anesthetic Complications: no major complications apparent
[2016-10-18 11:25] VITALS: BP 160/80; PULSE 77; O2SAT 99
== END | disposition home or self-care (01) ==
LOC: C.GI 09:52
PROVIDERS: ATTEND Internal Medicine
DX: R13.10 Dysphagia, unspecified (principal); K44.9 Diaphragmatic hernia without obstruction or gangrene; K21.9 Gastro-esophageal reflux disease without esophagitis; Z83.79 Family history of other diseases of the digestive system; Z79.899 Other long term (current) drug therapy

== ENCOUNTER → 2017-02-28 | Outpatient (CLI) | payer BC ==
[~2017-02-28] MED LIST changes: -ATROPINE SULFATE 0.1 MG/ML 5ML SYR IV PRN; -EpHEDrine SULFATE INJ 50 MG/ML AMP IV PRN; -LIDOCAINE HCL 2% 2 ML VIAL (20MG/ML) ONE; -MIDAZOLAM HCL 1 MG/ML 2ML VIAL ONE; -ONDANSETRON INJ 2 MG/ML 2 ML VIAL ONE; -PROPOFOL IV EMULSION 10 MG/ML 20 ML VIAL IV ONE; -SODIUM CHLORIDE 0.9% 500ML 500 ML IV ONE
== END | disposition home or self-care (01) ==
LOC: C.LABSPEC 17:34
PROVIDERS: ATTEND Nurse Practitioner Adult Health
DX: L02.31 Cutaneous abscess of buttock (principal)

== ENCOUNTER 2017-05-29 06:15 | Inpatient (IN) | payer BC ==
[2017-05-09 13:43] VITALS: BMI 41.0
--- NOTE | 2017-05-09 14:30 | PAT Medication Instructions ---
Service Date May 09, 2017. Current Home Medication List Albuterol Sulfate (Proair Respiclick), 2 PUFFS INH DAILY PRN for Shortness of Breath B-Complex W/ Folic Acid (B Complex), 1 TAB PO QAM Cyanocobalamin (B12), 1,000 MCG PO QAM Docusate Sodium (Colace), 1 CAP PO HS Duloxetine Hcl (Cymbalta), 1 CAP PO QPM Fluticasone Propionate (Nasal) (Flonase Allergy Relief), 1 SPRAY GIRISH DAILY PRN for ALLERGIES Gabapentin (Neurontin), 300 MG PO BID Lactase (Lactaid), 1 TAB PO UD PRN for LACTOSE PRODUCTS Meloxicam (Mobic), 15 MG PO QPM Ranitidine (Zantac), 150 MG PO HS Triamcinolone Acet (Aristocort 0.1%), 1 APPLN TOP DIRECTED PRN for SKIN AREAS Turmeric (Curcuma Longa) (Turmeric), 1 TAB PO QAM Medication Instructions For Your Scheduled Surgery - Hold the following medications 2 weeks prior to surgery: Turmeric (Curcuma Longa) (Turmeric), 1 TAB PO QAM - Hold the following medications 7 days prior to surgery per your surgeon's instructions: Meloxicam (Mobic), 15 MG PO QPM - Hold the following medications 24 hours prior to surgery: Triamcinolone Acet (Aristocort 0.1%), 1 APPLN TOP DIRECTED PRN for SKIN AREAS - Hold the following medications the morning of surgery: B-Complex W/ Folic Acid (B Complex), 1 TAB PO QAM Cyanocobalamin (B12), 1,000 MCG PO QAM Lactase (Lactaid), 1 TAB PO UD PRN for LACTOSE PRODUCTS - Take the following medications the morning of surgery with a sip of water: Albuterol Sulfate (Proair Respiclick), 2 PUFFS INH DAILY PRN for Shortness of Breath (if needed, and bring it with you to the hospital) Fluticasone Propionate (Nasal) (Flonase Allergy Relief), 1 SPRAY GIRISH DAILY PRN for ALLERGIES (if needed) Gabapentin (Neurontin), 300 MG PO BID - Take the following medications as scheduled the night before surgery: Albuterol Sulfate (Proair Respiclick), 2 PUFFS INH DAILY PRN for Shortness of Breath (if needed) Docusate Sodium (Colace), 1 CAP PO HS Duloxetine Hcl (Cymbalta), 1 CAP PO QPM Fluticasone Propionate (Nasal) (Flonase Allergy Relief), 1 SPRAY GIRISH DAILY PRN for ALLERGIES (if needed) Gabapentin (Neurontin), 300 MG PO BID Lactase (Lactaid), 1 TAB PO UD PRN for LACTOSE PRODUCTS (if needed) Ranitidine (Zantac), 150 MG PO HS If you have any questions please call us at [phone] or [phone] or [phone]
[2017-05-09 15:52] LABS: BASO % 0.2 %; BASO ABS # 0.01 K/uL (0-0.2); HEMATOCRIT 41.3 % (37-47); HEMOGLOBIN 14.3 g/dL (12.0-16.0); LYMPH % 30.2 %; LYMPH ABS # 1.49 K/uL (1.2-3.4); MEAN CELL VOLUME 86.6 fL (80-100); MEAN CORPUSCULAR HGB CONC 34.6 g/dl (32-36); MEAN PLATELET VOLUME 10.7 fL (7.4-10.4); MONO % 8.7 %; MONO ABS # 0.43 K/uL (0.11-0.59); NEUT % 58.9 %; PLATELET COUNT 220 K/uL (130-400); RED CELL DISTRIBUTION WIDTH CV 12.7 % (11.5-14.5); RED CELL DISTRIBUTION WIDTH SD 40.5 fL (36.4-46.3); WHITE BLOOD COUNT 4.93 K/uL (4.8-10.8)
[2017-05-09 16:03] LABS: CALCIUM 9.4 mg/dl (8.5-10.1); CREATININE 0.7 mg/dl (0.60-1.20); POTASSIUM 3.9 mmol/L (3.5-5.1)
[2017-05-09 16:04] LABS: PTT PATIENT 30.3 SECONDS (21.0-31.0)
--- NOTE | 2017-05-28 19:21 | HISTORY & PHYSICAL EXAMINATION ---
DATE OF ADMISSION: 05/29/2017 CHIEF COMPLAINT: Chronic right knee pain. HISTORY OF PRESENT ILLNESS: This is a 56-year-old female patient of Dr. Ladd'russ complaining of chronic right knee pain, longstanding, now progressively getting worse. The patient has been diagnosed with end-stage osteoarthritis per clinical and radiographic exams. The patient has failed conservative treatment including anti-inflammatories, intra-articular injections including cortisone and viscosupplementation. She has also used gabapentin and the use of a brace. The patient has increased pain with weightbearing activities and her pain does interfere with her activities of daily living. PAST MEDICAL HISTORY: Hypertension, asthma, sleep apnea with the use of CPAP, anxiety, carpal tunnel syndrome, history of seizure disorder, osteoarthritis, sciatica, acid reflux, hiatal hernia, obesity, history of high ammonia levels. SOCIAL HISTORY: Nonsmoker, occasional drinker. FAMILY HISTORY: Noncontributory. REVIEW OF SYSTEMS: Chronic right knee pain, otherwise denies any shortness of breath, chest pain, nausea, vomiting, or any other joint complaints. PAST SURGICAL HISTORY: Bladder surgery x2, , tubal ligation, carpal tunnel and the right elbow surgery, meniscus surgery both knees, and exploratory laparoscopy. ALLERGIES: LATEX AND MILK. PHYSICAL EXAMINATION: GENERAL: Well-developed, well-nourished 56-year-old female in no acute distress. She is alert and oriented x3 and pleasant. HEENT: Normocephalic, atraumatic. Extraocular motions are intact. Pupils are equal and reactive to light. HEART: Regular rate and rhythm, no murmurs are appreciated. LUNGS: Clear. ABDOMEN: Soft and nontender. Bowel sounds are present. EXTREMITIES: Right knee revealed a mild effusion with a limited range of motion of negative 10-100 degrees. She has crepitation with passive range of motion. She has 4/5 strength. NEUROLOGIC: Neurovascularly, she is intact in her right lower extremity. DIAGNOSES: Right knee end-stage osteoarthritis, hypertension, asthma, sleep apnea with the use of CPAP, anxiety, carpal tunnel syndrome, history of seizure disorder, osteoarthritis, sciatica, acid reflux, hiatal hernia, obesity, history of high ammonia. PLAN: The patient was advised of her diagnosis. Indications, risks, benefits, postop course have all been reviewed. The patient wished to proceed with a right total knee arthroplasty. Necessary consent forms, preoperative testing clearances will be obtained.
[2017-05-29] VITALS (9 sets, daily range): BP systolic 116–152; BP diastolic 72–99; PULSE 55–92; TEMP 36.5–36.8; O2SAT 93–100; Ht 167.6 cm; Wt 115.0 kg
[~2017-05-29] VITALS: Ht 167.6 cm; Wt 115.0 kg
[~2017-05-29 06:15] MED LIST changes: -ACET-1256 PO; +ACETAMINOPHEN 500 MG TAB PO SCH; -ALPH150C PO; +CEFAZOLIN 2000MG IV PUSH 15 ML IV SCH; -CHOL1CAP13 PO; +CeleBREX 200 MG CAP PO SCH; +DEXAMETHASONE 4 MG TAB PO SCH; +DOCU-94 PO; +FAMOTIDINE 20 MG TAB PO SCH; +LACTATED RINGER'S 1000ML 1,000 ML IV SCH; -LISI10TA PO; -MECL1TAB42 PO; +MELO7.5T5 PO; -META1TAB22 PO; +METOCLOPRAMIDE HCL 10 MG TAB PO SCH; -NRN/300 PO; +RANI150T85 PO; +ROPIVACAINE 5MG/ML 30 ML 150 MG, BUPIVACAINE 0.5% MPF INJ 30 ML, EpINEphrine HCL INJ 0.... INFIL SCH; +TURM500T PO; -ZNTT/150 PO
[2017-05-29] MEDS ORDERED: FENTANYL CITRATE INJ 50 MCG/1 ML 2 ML VIAL ONE (06:44)
[2017-05-29] MEDS ORDERED: MIDAZOLAM HCL 1 MG/ML 2ML VIAL ONE (06:44)
[2017-05-29] MEDS ORDERED: DEXAMETHASONE SOD INJ 4 MG/ML VIAL ONE (06:47)
[2017-05-29] MEDS ORDERED: ONDANSETRON INJ 2 MG/ML 2 ML VIAL ONE (06:47)
[2017-05-29] MEDS ORDERED: PROPOFOL IV EMULSION 10 MG/ML 20 ML VIAL IV ONE ×3 (06:47→10:26)
--- NOTE | 2017-05-29 06:49 | History & Physical Bridge Note ---
H&P Re-Evaluation Bridge Note: I have examined the patient, reviewed the History & Physical and in the interval since the performance of the History & Physical I have noted the following changes of clinical significance: No changes noted
[2017-05-29] MEDS ORDERED: ONDANSETRON INJ 2 MG/ML 2 ML VIAL IV PRN ×2 (07:30→11:15)
[2017-05-29] MEDS ORDERED: PROMETHAZINE HCL INJ 12.5 MG in SODIUM CHLORIDE 0.9% 50ML 50 ML IV PRN (07:30)
[2017-05-29] MEDS ORDERED: EpHEDrine SULFATE INJ 50 MG/ML AMP IV PRN (07:30)
[2017-05-29] MEDS ORDERED: ATROPINE SULFATE 0.1 MG/ML 5ML SYR IV PRN (07:30)
[2017-05-29] MEDS ORDERED: FENTANYL CITRATE INJ 50 MCG/1 ML 2 ML VIAL IV PRN (07:30)
[2017-05-29] MEDS ORDERED: PHENYLEPHRINE 100MCG/ML 5ML SYR IV PRN (07:30)
[2017-05-29] MEDS ORDERED: HYDROmorphone INJ 1 MG/ML SYR IV PRN (07:30)
[2017-05-29] MEDS ORDERED: LOSA50TA6 PO (07:40)
[2017-05-29] MEDS ORDERED: BUPIVACAINE 0.25% 30 ML VIAL ONE (07:40)
[2017-05-29] MEDS ORDERED: BUPIVACAINE 0.5 % 5 MG/1 ML PF 10ML VIAL ONE (07:41)
[2017-05-29] MEDS ORDERED: POVIDONE-IODINE OP SOLN 30 ML BTL ONE (08:16)
[2017-05-29] MEDS ORDERED: ORTHO JOINT ANESTHETIC ONE (08:16)
[2017-05-29] MEDS ORDERED: BACITRACIN 50000 UNIT VIAL ONE (08:16)
[2017-05-29] MEDS: TRANEXAMIC ACID INJ 1,000 MG x 2 Bags IV SCH ×4 (08:54→12:27)
--- NOTE | 2017-05-29 10:39 | [facility] Post Operative Brief Note ---
Immediate Operative Summary Operative Date May 29, 2017. Pre-Operative Diagnosis Right Knee End stage Osteoarthritis Post-Operative Diagnosis Right Knee End stage Osteoarthritis Procedure(s) Performed Right Knee Total Arthroplasty Surgeon Dr Ladd [employer] Developer Surgeon(s) Nik Silverio PA-C Estimated Blood Loss 5cc Findings Consistent with Post-Op Diagnosis Specimens As Per Surgeon A. Right Knee Bone and Tissue Drains 2 hemovac Anesthesia Type MAC Spinal Regional Complication(s) none
[2017-05-29] MEDS ORDERED: TRAMADOL HCL 50 MG TAB PO PRN (11:15)
[2017-05-29] MEDS ORDERED: BISACODYL 10 MG SUPP PR PRN (11:15)
[2017-05-29] MEDS ORDERED: MoRPHine SULFATE 2 MG/ML CARP IV PRN (11:15)
[2017-05-29] MEDS ORDERED: CEFAZOLIN IV 2,000 MG in DEXTROSE 5% 50ML 50 ML IV SCH (11:15)
[2017-05-29] MEDS ORDERED: ALBUTEROL HFA 8 GM INHALER INH PRN (11:15)
[2017-05-29] MEDS ORDERED: MAGNESIUM HYDROXIDE SUSP 30 ML UDC PO PRN (11:15)
[2017-05-29] MEDS ORDERED: ALUMINUM/MAGNESIUM/SIMETH (MAALOX MAX) 30 ML UDC PO PRN (11:15)
[2017-05-29] MEDS ORDERED: FLUTICASONE PROPIONATE NA SPR 16 GM BTL NAE PRN (11:15)
--- NOTE | 2017-05-29 11:43 | Anesthesiology Progress Note ---
Anesthesia Post Op Note Date & Time May 29, 2017 at 11:43 Vital Signs Pain Intensity: 0 Vital Signs Past 12 Hours Date Time Temp Pulse Resp B/P (MAP) Pulse Ox O2 Delivery O2 Flow Rate FiO2 05/29/17 11:40 36.4 100 Nasal Cannula 2 05/29/17 11:34 73 17 05/29/17 11:34 75 17 100 05/29/17 11:31 154/93 05/29/17 11:29 89 19 97 05/29/17 11:29 89 19 05/29/17 11:26 136/90 05/29/17 11:24 88 21 05/29/17 11:24 88 21 98 05/29/17 11:23 86 17 05/29/17 11:23 86 17 133/94 98 05/29/17 11:21 151/104 05/29/17 11:18 88 12 05/29/17 11:18 86 12 100 05/29/17 11:16 132/91 05/29/17 11:13 91 16 05/29/17 11:13 91 16 100 05/29/17 11:11 152/95 05/29/17 11:08 36.5 92 16 131/90 100 Oxymask 10 05/29/17 11:08 91 16 05/29/17 11:08 91 16 131/90 100 05/29/17 07:00 36.8 89 20 152/99 95 Room Air Notes Mental Status: alert / awake / arousable, participated in evaluation Pt Amnestic to Procedure: Yes Nausea / Vomiting: adequately controlled Pain: adequately controlled Airway Patency, RR, SpO2: stable & adequate BP & HR: stable & adequate Hydration State: stable & adequate Neuraxial Anesthesia: was administered, sensory block is resolving Anesthetic Complications: no major complications apparent
--- NOTE | 2017-05-29 11:45 | DIAGNOSTIC IMAGING REPORT ---
RIGHT KNEE 2 VIEWS History: Right total knee arthroplasty. Degenerative arthritis. Postop. FINDINGS: The patient is status post a right total knee arthroplasty. The hardware is intact. No fracture or dislocation. Skin roby and surgical drains are in place. IMPRESSION: Right total knee arthroplasty. No evidence for hardware complication. Electronically signed by: Timmy Myrick M.D. 05/29/2017 11:43 AM Dictated Date/Time: 05/29/2017 11:43 AM
[2017-05-29] MEDS: D5W AND 1/2NSS + 20MEQ KCL 1,000 ML IV SCH ×2 (13:01→22:33)
[2017-05-29] MEDS: ACETAMINOPHEN 500 MG TAB PO SCH ×2 (14:03→21:47)
--- NOTE | 2017-05-29 17:02 | Medical Consult ---
Consultation Date of Consultation: May 29, 2017. Attending Physician: Shaun Ladd M.D. Reason for Consultation: Medical management History of Present Illness 56 y/o F who was admitted earlier today s/p R TKA with Dr. Ladd. Pt is doing well post-op. She does have some pain to the R knee, but it is acceptable. Tolerating PO without issue. Denies chest pain, SOB. Pt denies fever, abd pain, n/v/c/d, LE swelling. Pt states she had 2 seizures, both under times of increased stress. The first was shortly after she had a with her daughter's . The second "was when I was doing the job of two people and getting no sleep". She had been on seizure medication, however she states there was never a definite cause given for her seizures. It has been presumed that they were due to stress. She waited until her daughter was in college to stop seizure meds and has been off of them for 3-4 years without recurrence of seizure. Past Medical/Surgical History Medical Problems: (1) Bilateral foot pain Status: Acute (2) Hypertension Status: Acute (3) Peripheral edema Status: Acute Seizure disorder NOS HEATHER-on CPAP Asthma GERD Hiatal hernia OA Anxiety Family History Family history was reviewed; no changes noted. Social History Smoking Status: Never Smoker Alcohol Use: none Drug Use: none Marital Status: Housing Status: lives with family Occupation Status: employed Allergies Coded Allergies: Latex1 -Allergic Contact Dermititis (Verified Allergy, Intermediate, REDDENED RASH, 05/09/17) Milk (Verified Allergy, Unknown, DIARRHEA, 05/09/17) NO KNOWN DRUG ALLERGIES (Verified Allergy, Unknown, ., 05/09/17) Current Inpatient Medications Current Inpatient Medications Medications (Trade) Dose Ordered Sig/Alejandro Route Start Time Stop Time Status Last Admin Dose Admin Acetaminophen (Tylenol Tab) 1,000 mg PREOP PO 05/29/17 06:00 05/29/17 18:00 05/29/17 06:55 1,000 MG Celecoxib (CeleBREX CAP) 200 mg PREOP PO 05/29/17 06:00 05/29/17 18:00 05/29/17 06:56 200 MG Dexamethasone (Decadron Tab) 8 mg PREOP PO 05/29/17 06:00 4/16/18 18:00 05/29/17 06:55 8 MG Famotidine (Pepcid Tab) 20 mg PREOP PO 05/29/17 06:00 05/29/17 18:00 05/29/17 06:56 20 MG Metoclopramide HCl (Reglan Tab) 10 mg PREOP PO 05/29/17 06:00 05/29/17 18:00 05/29/17 06:56 10 MG Cefazolin Sodium 15 ml @ 3.75 mls/ min PREOP IV 05/29/17 06:00 05/29/17 18:00 05/29/17 09:11 3.75 MLS/MIN Duloxetine HCl (Cymbalta Cap) 60 mg QPM PO 05/29/17 21:00 06/28/17 20:59 Fluticasone Propionate (Flonase Nasal [employer]) 1 sprays DAILY PRN GIRISH 05/29/17 11:15 06/28/17 11:14 Gabapentin (Neurontin Cap) 300 mg BID PO 05/29/17 21:00 06/28/17 20:59 Losartan Potassium (coZAAR TAB) 50 mg DAILY PO 05/30/17 09:00 06/29/17 08:59 Ranitidine HCl (zANTac TAB) 150 mg HS PO 05/29/17 21:00 06/28/17 20:59 Albuterol (Ventolin Hfa Inhaler) 2 puffs DAILY PRN INH 05/29/17 11:15 06/28/17 11:14 Morphine Sulfate (MoRPHine SULFATE INJ) 2 mg Q4HWA PRN IV 05/29/17 11:15 06/12/17 11:14 Potassium Chloride/Dextrose/ Sod Cl 1,000 ml @ 100 mls/hr Q10H IV 05/29/17 13:00 05/30/17 12:59 05/29/17 13:01 100 MLS/HR Celecoxib (CeleBREX CAP) 200 mg BID PO 05/29/17 21:00 06/28/17 20:59 Oxycodone HCl (Roxicodone Immediate Rel Tab) 1 TABLET FOR PAIN RATING... Q4H PRN PO 05/29/17 11:15 06/12/17 11:14 Acetaminophen (Tylenol Tab) 1,000 mg Q8 PO 05/29/17 14:00 06/28/17 13:59 05/29/17 14:03 1,000 MG Magnesium Hydroxide (Milk Of Magnesia Susp) 30 ml Q6H PRN PO 05/29/17 11:15 06/28/17 11:14 Bisacodyl (Dulcolax Supp) 10 mg DAILY PRN [place] 05/29/17 11:15 06/28/17 11:14 Senna (Senokot Tab) 17.2 mg HS PO 05/29/17 21:00 06/28/17 20:59 Docusate Sodium (coLACE CAP) 100 mg BID PO 05/29/17 21:00 06/28/17 20:59 Al Hydrox/Mg Hydrox/Simethicone (Maalox Max Susp) 15 ml Q4H PRN PO 05/29/17 11:15 06/28/17 11:14 Multivitamins (Multivitamin Tab) 1 tab QAM PO 05/30/17 09:00 06/29/17 08:59 Ondansetron HCl (Zofran Inj) 4 mg Q6H PRN IV 05/29/17 11:15 06/28/17 11:14 Ferrous Gluconate (Ferrous Gluconate Tab) 324 mg TIDM PO 05/29/17 17:45 06/28/17 17:44 Pantoprazole Sodium (Protonix Tab) 40 mg QAM PO 05/30/17 09:00 06/02/17 09:01 Tramadol HCl (Ultram Tab) 1 tablet for pain rating... Q4H PRN PO 05/29/17 11:15 06/28/17 11:14 Aspirin (Ecotrin Tab) 81 mg BID PO 05/29/17 21:00 06/28/17 20:59 Cefazolin Sodium 2000 mg/Syringe 15 ml @ 3.75 mls/ min Q8H IV 05/29/17 18:00 05/30/17 02:03 Cyanocobalamin (Vitamin B-12 Tab) 1,000 mcg QAM PO 05/30/17 09:00 06/29/17 08:59 Review of Systems Pertinent positives and negatives reviewed in HPI--all others negative Physical Exam Date Time Temp Pulse Resp B/P (MAP) Pulse Ox O2 Delivery O2 Flow Rate FiO2 05/29/17 16:57 55 16 116/72 (87) 05/29/17 15:36 36.7 86 16 118/75 (89) 95 Room Air 05/29/17 14:05 36.6 84 14 131/77 (95) 97 Nasal Cannula 2.0 18 13:07 36.6 86 16 129/84 (99) 96 Nasal Cannula 2.0 18 12:40 36.5 84 16 131/87 (102) 100 Nasal Cannula 05/29/17 12:10 36.5 69 15 150/92 (111) 99 Nasal Cannula 2.0 05/29/17 12:10 99 Nasal Cannula 2.0 05/29/17 12:10 99 Nasal Cannula 2.0 05/29/17 11:55 71 14 05/29/17 11:55 70 14 100 05/29/17 11:51 125/94 05/29/17 11:50 65 16 100 05/29/17 11:50 63 16 05/29/17 11:46 137/99 05/29/17 11:45 83 18 05/29/17 11:45 85 18 99 05/29/17 11:41 136/88 18 11:40 74 13 100 05/29/17 11:40 73 13 05/29/17 11:40 36.4 100 Nasal Cannula 2 05/29/17 11:36 142/83 05/29/17 11:35 84 13 99 18 11:35 83 13 18 11:34 73 17 05/29/17 11:34 75 17 100 05/29/17 11:31 154/93 18 11:29 89 19 97 18 11:29 89 19 18 11:26 136/90 18 11:24 88 21 18 11:24 88 21 98 18 11:23 86 17 05/29/17 11:23 86 17 133/94 98 18 11:21 151/104 18 11:18 88 12 18 11:18 86 12 100 18 11:16 132/91 18 11:13 91 16 05/29/17 11:13 91 16 100 18 11:11 152/95 4/16/18 11:08 36.5 92 16 131/90 100 Oxymask 10 05/29/17 11:08 91 16 05/29/17 11:08 91 16 131/90 100 05/29/17 07:00 36.8 89 20 152/99 95 Room Air General Appearance: WD/WN, no apparent distress Head: normocephalic, atraumatic Eyes: normal inspection, sclerae normal Respiratory/Chest: normal breath sounds, no respiratory distress Cardiovascular: regular rate, rhythm, no edema Abdomen/GI: non tender, soft Extremities/Musculoskelatal: no calf tenderness, no pedal edema Neurologic/Psych: alert, normal mood/affect, oriented x 3 Skin: normal color, warm/dry Laboratory Results Last 24 Hours Test 05/29/17 07:06 Hepatitis C Antibody Screen NEG Assessment & Plan 56 y/o F who was admitted on 05/29 s/p R TKA with Dr. Ladd. Pt is doing well post-op. R knee pain: s/p R TKA DVT proph and diet as per ortho HTN: stable, continue home meds Hx of seizures: 2 seizures, both under times of increased stress No meds x 3-4 years without recurrence of seizure Monitor Asthma: stable post-op
--- NOTE | 2017-05-29 17:20 | [facility] Operative Report ---
Operative Report Operative Date May 29, 2017. 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 Right Knee Bone and Tissue Drains 2 hemovac Anesthesia Spinal regional block orthomix Complication(s) None Disposition Recovery Room / PACU Indications 52-year-old female failed conservative management now [id number] medial compartment with varus knee progression over several years maxed out on all conservative management. Description of Procedure The patient was taken to the operating room and anesthetized under spinal regional block. Patient was placed supine on the the operating table. A pneumatic tourniquet was placed about the right upper thigh. The knee exam demonstrated slight flexion contracture and crepitation range of motion no instability flexion to 120. The involved leg was elevated exsanguinated with Esmarch bandage and the pneumatic tourniquet was raised to 350 millimeters mercury. A longitudinal incision was made across the anterior knee. Skin flaps were elevated. An incision was made into the medial retinaculum and extended up into the mid third of the quadriceps tendon and extended down to the tibial tubercle. Intra-articular findings demonstrated grade 3-4 DJD patellofemoral joint grade 4 DJD medial compartment varus knee.. The knee was exposed by excising cruciate ligaments and menisci. The infrapatellar fat pad was resected. The fat pad over the anterior femur at the upper aspect of the articular surface was resected for placement of the component in that area. A subperiosteal peel lateral release was performed around the patella The [employer] 2.0 total knee arthroplasty system was utilized for the procedure. The custom femoral cutting guide was pinned in position. The distal femoral cut was made. The size 4, 5 in 1 cutting block was placed. The anterior posterior and chamfer cuts were made. The knee was extended and a free hand cut technique was performed to the patella. The patella with was measured and the width was reproduced using a 35 patella component. 3 drill holes are made for the patella component pegs. The tibia was then subluxed. The custom tibial cutting block was pinned in position and the proximal tibial cut was made with the oscillating saw. The size 3 tibial trial was externally rotated in line with the tibial tubercle and pinned in position. The punch for the stem was used. The femoral trial was inserted and centered the notch cutting devices were used and the collet was placed. Tibial trials were used for the insert. The size 10 high flex trial gave balanced ligaments through full range of motion. Patella tracking was assessed with range of motion. The patella tracked centrally. The trials were removed. The Orthomix anesthetic cocktail was injected per protocol. The cut bone surfaces and soft tissue were copiously irrigated with antibiotic solution with bacitracin. The final components were cemented with Simplex cement. The final components were the size 4 [employer] journey 2.0 Oxinium femur 3 tibial baseplate 10 mm high flex poly-insert and 35 mm dome patella. While the cement cured the Betadine soak was used per protocol. When the cement cured the knee was copiously irrigated with pulsatile lavage antibiotic solution with bacitracin. 2 drains were brought out laterally connected to Hemovac. The quadriceps tendon and medial retinaculum were closed with interrupted [id number] #1 Vicryl sutures. The knee was taken through full range of motion and repair was secure. The subcutaneous tissues were closed with 2-0 Vicryl sutures. The skin was closed with roby. A superficial wound VAC was applied. The tourniquet was let down and the patient had good capillary refill to the extremity. The patient tolerated the procedure well. My physician warehouse administrative assistant Nik GRAVES assisted in the procedure including prepping draping leg positioning soft tissue retraction instrument management and assisted in the closure ,dressings application and will participate in postoperative care the patient. I attest to the content of the Intraoperative Record and any orders documented therein. Any exceptions are noted below.
[2017-05-29] MEDS: FERROUS GLUCONATE 324 MG TAB PO SCH (17:25)
[2017-05-29] MEDS: CEFAZOLIN IV 2,000 MG in SYRINGE 0 ML IV SCH (17:25)
[2017-05-29] MEDS ORDERED: RANITIDINE HCL 150 MG TAB PO SCH (21:00)
[2017-05-29] MEDS: DOCUSATE SODIUM 100 MG CAP PO SCH (21:44)
[2017-05-29] MEDS: CeleBREX 200 MG CAP PO SCH (21:44)
[2017-05-29] MEDS: DULOXETINE HCL 60 MG CAP PO SCH (21:44)
[2017-05-29] MEDS: ASPIRIN 81 MG ECTAB PO SCH (21:45)
[2017-05-29] MEDS: GABAPENTIN 300 MG CAP PO SCH (21:45)
[2017-05-29] MEDS: SENNA 8.6 MG TAB PO SCH (21:46)
[2017-05-30] MEDS: CEFAZOLIN IV 2,000 MG in SYRINGE 0 ML IV SCH (01:42)
[2017-05-30 02:45] VITALS: BP 127/84; PULSE 72; TEMP 36.6; O2SAT 95
[2017-05-30] MEDS: ACETAMINOPHEN 500 MG TAB PO SCH ×3 (05:40→21:21)
[2017-05-30 05:56] LABS: HEMATOCRIT 34.8 % (37-47); HEMOGLOBIN 11.9 g/dL (12.0-16.0); MEAN CELL VOLUME 86.8 fL (80-100); MEAN CORPUSCULAR HEMOGLOBIN 29.7 pg (25-34); MEAN CORPUSCULAR HGB CONC 34.2 g/dl (32-36); MEAN PLATELET VOLUME 10.6 fL (7.4-10.4); PLATELET COUNT 202 K/uL (130-400); RED CELL DISTRIBUTION WIDTH CV 12.4 % (11.5-14.5); RED CELL DISTRIBUTION WIDTH SD 39.7 fL (36.4-46.3); WHITE BLOOD COUNT 14.03 K/uL (4.8-10.8)
[2017-05-30 06:25] LABS: CALCIUM 8.6 mg/dl (8.5-10.1); CREATININE 0.86 mg/dl (0.60-1.20); POTASSIUM 4.2 mmol/L (3.5-5.1)
[2017-05-30 07:40] VITALS: BP 132/90; PULSE 78; TEMP 36.8; O2SAT 98
--- NOTE | 2017-05-30 07:40 | Anesthesiology Progress Note ---
Anesthesia Post Op Note Date & Time May 30, 2017 at 07:39 Vital Signs Vital Signs Past 12 Hours Date Time Temp Pulse Resp B/P (MAP) Pulse Ox O2 Delivery O2 Flow Rate FiO2 05/30/17 02:45 36.6 72 16 127/84 (98) 95 Room Air 05/29/17 23:20 Room Air 05/29/17 23:20 36.5 76 16 119/75 (90) 93 Room Air 05/29/17 20:15 36.5 92 18 128/78 (95) 95 Room Air Notes Mental Status: alert / awake / arousable, participated in evaluation Pt Amnestic to Procedure: Yes Nausea / Vomiting: adequately controlled Pain: adequately controlled Airway Patency, RR, SpO2: stable & adequate BP & HR: stable & adequate Hydration State: stable & adequate Neuraxial Anesthesia: sensory block resolved Anesthetic Complications: no major complications apparent
--- NOTE | 2017-05-30 07:51 | Orthopedic Progress Note ---
Orthopedic Progress Note Date of Service May 30, 2017. Subjective Post OP Day: 1 Reports: feeling well, complaints (mild pain behind operative knee), Denies: chest pain, SOB, nausea / vomiting, light headedness, calf pain Additional Notes: States the only pain she's been having is a mild pain behind the knee. Denies calf pain presently. Objective calves soft nontender, N/V intact, dressing C/D/I, A&O x3, toes mobile Date Time Temp Pulse Resp B/P (MAP) Pulse Ox O2 Delivery O2 Flow Rate FiO2 05/30/17 07:40 36.8 78 18 132/90 (104) 98 Room Air 05/30/17 02:45 36.6 72 16 127/84 (98) 95 Room Air 05/29/17 23:20 Room Air 05/29/17 23:20 36.5 76 16 119/75 (90) 93 Room Air 05/29/17 20:15 36.5 92 18 128/78 (95) 95 Room Air 05/29/17 19:20 Room Air 05/29/17 16:57 55 16 116/72 (87) 05/29/17 15:36 36.7 86 16 118/75 (89) 95 Room Air 05/29/17 14:05 36.6 84 14 131/77 (95) 97 Nasal Cannula 2.0 05/29/17 13:07 36.6 86 16 129/84 (99) 96 Nasal Cannula 2.0 05/29/17 12:40 36.5 84 16 131/87 (102) 100 Nasal Cannula 05/29/17 12:10 36.5 69 15 150/92 (111) 99 Nasal Cannula 2.0 05/29/17 12:10 99 Nasal Cannula 2.0 05/29/17 12:10 99 Nasal Cannula 2.0 05/29/17 11:55 71 14 05/29/17 11:55 70 14 100 05/29/17 11:51 125/94 05/29/17 11:50 65 16 100 05/29/17 11:50 63 16 05/29/17 11:46 137/99 05/29/17 11:45 83 18 05/29/17 11:45 85 18 99 05/29/17 11:41 136/88 05/29/17 11:40 74 13 100 05/29/17 11:40 73 13 05/29/17 11:40 36.4 100 Nasal Cannula 2 05/29/17 11:36 142/83 05/29/17 11:35 84 13 99 05/29/17 11:35 83 13 05/29/17 11:34 73 17 05/29/17 11:34 75 17 100 05/29/17 11:31 154/93 05/29/17 11:29 89 19 97 05/29/17 11:29 89 19 05/29/17 11:26 136/90 05/29/17 11:24 88 21 05/29/17 11:24 88 21 98 05/29/17 11:23 86 17 05/29/17 11:23 86 17 133/94 98 05/29/17 11:21 151/104 05/29/17 11:18 88 12 05/29/17 11:18 86 12 100 05/29/17 11:16 132/91 05/29/17 11:13 91 16 05/29/17 11:13 91 16 100 05/29/17 11:11 152/95 05/29/17 11:08 36.5 92 16 131/90 100 Oxymask 10 05/29/17 11:08 91 16 05/29/17 11:08 91 16 131/90 100 Laboratory Results 24 Hours: Test 05/30/17 05:23 Hematocrit 34.8 % Hemoglobin 11.9 g/dL Assessment & Plan Assessment: POD 1 s/p Right TKA Plan: PT/OT Planning on OPPT for now Inhouse Planning Pain Management: Celebrex, Ultram, Morphine, PO Tylenol, Oxy IR DVT Prophylaxis: TEDs, SCDs, ASA Discharge Planning Discharge Planning: home with oppt
--- NOTE | 2017-05-30 07:59 | Discharge Instructions ---
Discharge Instructions Date of Service May 30, 2017. Admission Reason for Admission: Right Knee Degenerative Joint Disease Discharge Discharge Diagnosis / Problem: Right Knee Djd Discharge Goals Goal(s): Decrease discomfort, Improve function, Increase independence Activity Recommendations Activity Limitations: per Instructions/Follow-up section Weightbearing Status: Right weightbearing (as tolerated) . Instructions / Follow-Up Instructions / Follow-Up ACTIVITY RECOMMENDATIONS: SELF CARE INSTRUCTIONS AFTER TOTAL KNEE REPLACEMENT A. You may need to continue a physical therapy program after discharge from the hospital. There are several options available to you. Your doctor will assist you in selecting the best one for you. 1. An out-patient facility 2 to 3 times a week for therapy or home therapy. 2. Continue working on all exercises taught to you in the hospital. Your goals should be to increase bending of your knee to 90 degrees and beyond and to fully straighten your knee. B. You may progress at your own pace from walking with a walker or crutches to a cane; then to no assistive devices. C. Make walking a part of your daily routine. Be up as much as comfortable with rest periods throughout the day. Rest with leg elevation is very important. Use the ice wrap frequently for the first 3-4 weeks. D. There are no restrictions on activities. You may ride in a car, shop, participate in aws developer and all social activities. E. Wear the long elastic stockings (VAISHNAVI hose) 20 hours a day for 2 weeks after surgery. They can be removed several times a day for laundering and for a bath. F. You may shower, no tub baths until cleared by your doctor. SPECIAL CARE INSTRUCTIONS: VERY IMPORTANT TO READ AND REVIEW A. There are a few signs you need to watch for after you are home. Call [facility] if you notice any of the followin. Increased severe knee pain. Some pain is expected especially when you exercise. 2. Increased swelling in your leg or knee; pain or swelling of the calf muscle in either lower leg. 3. Any fluid drainage from the incision. 4. Shortness of breath or chest pain. B. Please call [facility] at if you have any concerns or questions about your operation or recovery. The doctor or his nurse will return your call promptly. C. You must take antibiotics before dental work, bladder, bowel or other surgery. Your doctor will provide you with a permanent care to carry describing this precaution. IMPORTANT: * REMEMBER TO TAKE ASPIRIN, 81 MG, TWICE DAILY FOR 4 WEEKS UNLESS OTHERWISE DIRECTED. THIS IS YOUR BLOOD THINNER. * HIGH RISK PATIENTS MAY BE PRESCRIBED A STRONGER BLOOD THINNER. THIS WILL BE PROVIDED AT DISCHARGE. * CALL IF INCREASED PAIN, REDNESS, DRAINAGE OR FEVER GREATER THAT 101. * WEAR VAISHNAVI HOSE 20 HOURS PER DAY FOR 2 WEEKS. * Prevena- This is a large suction dressing covering your incision. This will help pull any excess drainage from the wound and allow your incision to heal properly. You may shower with this if you can keep the unit outside of the shower. If any bleeding or leakage is noted please call your doctor's office. This will remain on your incision for 7 days and then should be removed. This can be done yourself or by the home nursing staff if applicable. The entire unit is disposable once removed. Once removed, keep incision clean and dry. If redness or drainage is noted, please call your surgeon. . FOLLOW UP VISIT: If appointment is not already scheduled: Please call [facility] to make a follow-up appointment for 2 weeks after your surgery at . Current Hospital Diet Patient's current hospital diet: Regular Diet Discharge Diet Recommended Diet: Regular Diet Procedures Procedures Performed: Right Knee Total Arthroplasty Pending Studies Studies pending at discharge: no Laboratory Results Hemoglobin A1c Test 05/09/17 14:41 Range/Units Estimated Average Glucose 97 mg/dl Hemoglobin A1c 5.0 4.5-5.6 % Medical Emergencies . Who to Call and When: Medical Emergencies: If at any time you feel your situation is an emergency, please call 911 immediately. . Non-Emergent Contact Non-Emergency issues call your: Surgeon Call Non-Emergent contact if: temperature is above 101.5, your pain is not controlled, your pain is worsening, wound has increased drainage, wound has increased redness . "Provider Documentation" section prepared by Nik Silverio. . [place] Drug Monitoring Program Search Results: patient reviewed within database, no issues identified
[2017-05-30] MEDS: D5W AND 1/2NSS + 20MEQ KCL 1,000 ML IV SCH (08:12)
[2017-05-30] MEDS: FERROUS GLUCONATE 324 MG TAB PO SCH ×3 (08:47→18:34)
[2017-05-30] MEDS: CeleBREX 200 MG CAP PO SCH ×2 (08:47→20:21)
[2017-05-30] MEDS: DOCUSATE SODIUM 100 MG CAP PO SCH ×2 (08:48→20:22)
[2017-05-30] MEDS: ASPIRIN 81 MG ECTAB PO SCH ×2 (08:48→20:21)
[2017-05-30] MEDS: LOSARTAN POTASSIUM 50 MG TAB PO SCH (08:48)
[2017-05-30] MEDS: MULTIVITAMIN TAB PO SCH (08:49)
[2017-05-30] MEDS: GABAPENTIN 300 MG CAP PO SCH ×2 (08:49→20:22)
[2017-05-30] MEDS: CYANOCOBALAMIN 500 MCG TAB (VIT B-12) PO SCH (08:50)
[2017-05-30] MEDS: PANTOprazole SOD 40 MG TAB PO SCH (08:50)
[2017-05-30] MEDS ORDERED: CYANOCOBALAMIN 500 MCG TAB (VIT B-12) PO SCH (09:00)
[2017-05-30 12:28] VITALS: BP 140/82; PULSE 82; TEMP 36.8; O2SAT 100
[2017-05-30] MEDS: OXYCODONE HCL IR 5 MG TAB (IMMEDIATE RELEASE) PO PRN ×2 (14:09→20:21)
[2017-05-30 15:28] VITALS: BP 146/107; PULSE 107; TEMP 36.9; O2SAT 95
--- NOTE | 2017-05-30 15:58 | Hospitalist Progress Note ---
Hospitalist Progress Note Date of Service May 30, 2017. (Mary Mackay ., ALEXISC) Subjective Pt evaluation today including: conversation w/ patient, physical exam, chart review, lab review, review of inpatient medication list Patient reports feeling well. Her right knee pain is manageable and she did well with PT/OT. She is eating well, urinating and passing gas without issue. She has not yet had a bowel movement postop. She denies any acute complaints. The patient denies fevers, chills, sweats, chest pain, palpitations, claudication, cough, wheezing, shortness of breath, nausea, vomiting, abdominal pain, dysuria, hematuria, urinary retention, paralysis, weakness, numbness and tingling. Additional Comments: See HPI for pertinent positives and negatives. All other systems reviewed and negative. (Mary Mackay ., ELY-C) Objective Vital Signs Date Time Temp Pulse Resp B/P (MAP) Pulse Ox O2 Delivery O2 Flow Rate FiO2 05/30/17 15:28 36.9 107 18 146/107 (120) 95 Room Air 05/30/17 12:28 36.8 82 18 140/82 (101) 100 Room Air 05/30/17 09:37 Room Air 05/30/17 07:40 36.8 78 18 132/90 (104) 98 Room Air 05/30/17 02:45 36.6 72 16 127/84 (98) 95 Room Air 05/29/17 23:20 Room Air 05/29/17 23:20 36.5 76 16 119/75 (90) 93 Room Air 05/29/17 20:15 36.5 92 18 128/78 (95) 95 Room Air 05/29/17 19:20 Room Air 05/29/17 16:57 55 16 116/72 (87) (Mary Mackay ., ELY-C) Physical Exam Notes: General appearance: +Morbidly obese. Well-developed, well-nourished, no apparent distress Head: Normocephalic, atraumatic Eyes: Normal inspection, PERRL, EOMI ENT: Normal ENT inspection, hearing grossly normal, pharynx normal Neck: Supple, no JVD, trachea midline Respiratory/Chest: Lungs clear to auscultation, normal breath sounds, no respiratory distress Cardiovascular: Regular rate & rhythm, no gallop, no murmur Abdomen/GI: Normal bowel sounds, non-tender, soft Extremities/Musculoskeletal: +RLE wrapped in farooq bandage. Wound vac and hemovac in place. No calf tenderness, no pedal edema Neurological/Psych: Alert, normal mood/affect, oriented x 3 Skin: Normal color, warm/dry, no rash (Mary Mackay ., PA-C) Laboratory Results Last 24 Hours Test 05/30/17 05:23 White Blood Count 14.03 K/uL Red Blood Count 4.01 M/uL Hemoglobin 11.9 g/dL Hematocrit 34.8 % Mean Corpuscular Volume 86.8 fL Mean Corpuscular Hemoglobin 29.7 pg Mean Corpuscular Hemoglobin Concent 34.2 g/dl RDW Standard Deviation 39.7 fL RDW Coefficient of Variation 12.4 % Platelet Count 202 K/uL Mean Platelet Volume 10.6 fL Sodium Level 139 mmol/L Potassium Level 4.2 mmol/L Chloride Level 109 mmol/L Carbon Dioxide Level 24 mmol/L Anion Gap 6.0 mmol/L Blood Urea Nitrogen 16 mg/dl Creatinine 0.86 mg/dl Est Creatinine Clear Calc Drug Dose 96.3 ml/min Estimated GFR () 88.8 Estimated GFR (Non- 76.6 BUN/Creatinine Ratio 19.2 Random Glucose 125 mg/dl Calcium Level 8.6 mg/dl (Mary Mackay ., PA-C) Assessment and Plan 56 y/o female with a history of HTN, asthma, anxiety, h/o seizure disorder, neuropathy, fibromyalgia, HEATHER, and GERD who presents s/p right TKA with Dr. Ladd on 05/29 for medical management. S/p right TKA--POD #1 -Pain management, DVT prophylaxis, and PT/OT as per primary team -AVSS HTN--stable -Renal function stable, continue losartan 50 mg PO qd Mild intermittent asthma--stable -Continue albuterol inhaler prn, Claritin, Flonase Anxiety--stable -Continue Cymbalta 60 mg PO qd H/o seizure disorder--h/o 2 previous seizures, stress induced per pt -No antiseizure meds for 3-4 years, no recurrence Neuropathy, fibromyalgia -Continue gabapentin 900 mg PO BID (reconciled pt's meds, confirmed this dose in outpt records and with pt) GERD -Continue Zantac BID Pt. is stable from a medical standpoint, we will sign off. Clear for discharge as per primary team. (Mary Mackay ., DEEPTI) Reviewed: Pt Seen/Exam by Me (Alpa Beck MD) History Physician [employer] Research Engineer Supervision Note: I interviewed and examined the patient. Discussed with ELY Mackay and agree with findings and plan as documented in the note. Any exceptions or clarifications are listed here: Patient doing very well postoperatively. Denies any problems. Vitals reviewed Gen: AAOx3, NAD HEENT: anicteric sclerae, EOMI CV: RRR no mgr nl S1S2 Pulm: CTAB no wcr Abd: +BS soft NT ND no masses or hernias Ext: no edema, 2+ DP pulses, right knee in Farooq wrap not removed, distally neurovascularly intact Skin: no rashes, warm/dry 56-year-old female here with right TKA and history of seizure disorder, polyneuropathy, HTN, asthma, anxiety disorder, fibromyalgia, HEATHER, and GERD. -Doing well, pain control, aspirin 81 mg p.o. twice daily for DVT prophylaxis -Adjusting gabapentin dose as above -HEATHER-has not been on CPAP 1 year -HTN-acceptable blood pressures, continue losartan -Stable for discharge from a medical standpoint Signing off on this consultation, thank you. Documented By: Alpa Beck (Alpa Beck MD)
[2017-05-30] MEDS: SENNA 8.6 MG TAB PO SCH (20:21)
[2017-05-30] MEDS: RANITIDINE HCL 150 MG TAB PO SCH (20:22)
[2017-05-30] MEDS: DULOXETINE HCL 60 MG CAP PO SCH (20:22)
[2017-05-30 22:55] VITALS: BP 123/82; PULSE 82; TEMP 36.6; O2SAT 94
[2017-05-30 23:40] VITALS: O2SAT 94
[2017-05-31] MEDS: OXYCODONE HCL IR 5 MG TAB (IMMEDIATE RELEASE) PO PRN ×2 (04:46→12:58)
[2017-05-31] MEDS: ACETAMINOPHEN 500 MG TAB PO SCH (06:14)
[2017-05-31 06:15] LABS: HEMATOCRIT 34.2 % (37-47); HEMOGLOBIN 11.4 g/dL (12.0-16.0); MEAN CELL VOLUME 87.7 fL (80-100); MEAN CORPUSCULAR HEMOGLOBIN 29.2 pg (25-34); MEAN CORPUSCULAR HGB CONC 33.3 g/dl (32-36); MEAN PLATELET VOLUME 10.5 fL (7.4-10.4); PLATELET COUNT 174 K/uL (130-400); RED CELL DISTRIBUTION WIDTH CV 12.7 % (11.5-14.5); RED CELL DISTRIBUTION WIDTH SD 41.1 fL (36.4-46.3); WHITE BLOOD COUNT 7.35 K/uL (4.8-10.8)
--- NOTE | 2017-05-31 06:39 | Orthopedic Progress Note ---
Orthopedic Progress Note Date of Service May 31, 2017. Subjective Post OP Day: 2 Reports: feeling well, pain controlled w PO medications, Denies: complaints, chest pain, SOB, nausea / vomiting, light headedness, calf pain Objective calves soft nontender, N/V intact, capillary refill less than 2 sec., dressing C /D/I, A&O x3, toes mobile Prevena in tact Date Time Temp Pulse Resp B/P (MAP) Pulse Ox O2 Delivery O2 Flow Rate FiO2 05/30/17 23:40 94 Room Air 2.0 05/30/17 22:55 36.6 82 16 123/82 (96) 94 Room Air 05/30/17 15:28 36.9 107 18 146/107 (120) 95 Room Air 05/30/17 15:20 Room Air 05/30/17 12:28 36.8 82 18 140/82 (101) 100 Room Air 05/30/17 09:37 Room Air 05/30/17 07:40 36.8 78 18 132/90 (104) 98 Room Air Laboratory Results 24 Hours: Test 05/31/17 05:42 Hematocrit 34.2 % Hemoglobin 11.4 g/dL Assessment & Plan Assessment: POD 2 s/p Right TKA Plan: PT/OT Planning on OPPT to D/C today DVT proph- ASA Appreciate medical input Inhouse Planning Pain Management: Celebrex, Ultram, Morphine, PO Tylenol, Oxy IR DVT Prophylaxis: TEDs, SCDs, ASA Discharge Planning Discharge Planning: home with oppt
[2017-05-31] MEDS ORDERED: ASPI-320 PO (06:42)
[2017-05-31] MEDS ORDERED: RXC5 PO ×2 (06:42→10:30)
[2017-05-31] MEDS ORDERED: CLB200 PO (06:42)
[2017-05-31] MEDS ORDERED: ONDA8TAB12 PO (06:42)
[2017-05-31] MEDS ORDERED: ACET-24 PO (06:42)
[2017-05-31 06:46] LABS: CALCIUM 8.5 mg/dl (8.5-10.1); CREATININE 0.88 mg/dl (0.60-1.20); POTASSIUM 4.3 mmol/L (3.5-5.1)
[2017-05-31 08:32] VITALS: BP 150/98; PULSE 92; TEMP 36.9; O2SAT 96
[2017-05-31] MEDS: LOSARTAN POTASSIUM 50 MG TAB PO SCH (09:29)
[2017-05-31] MEDS: DOCUSATE SODIUM 100 MG CAP PO SCH (09:29)
[2017-05-31] MEDS: FERROUS GLUCONATE 324 MG TAB PO SCH ×2 (09:29→12:56)
[2017-05-31] MEDS: GABAPENTIN 300 MG CAP PO SCH (09:29)
[2017-05-31] MEDS: PANTOprazole SOD 40 MG TAB PO SCH (09:30)
[2017-05-31] MEDS: MULTIVITAMIN TAB PO SCH (09:30)
[2017-05-31] MEDS: CeleBREX 200 MG CAP PO SCH (09:30)
[2017-05-31] MEDS: RANITIDINE HCL 150 MG TAB PO SCH (09:30)
[2017-05-31] MEDS: CYANOCOBALAMIN 500 MCG TAB (VIT B-12) PO SCH (09:31)
[2017-05-31] MEDS: ASPIRIN 81 MG ECTAB PO SCH (09:31)
[2017-05-31 12:58] VITALS: BP 150/98; PULSE 92; TEMP 36.9; O2SAT 96
== END 2017-05-31 13:27 | disposition home or self-care (01) | DRG 470 ==
LOC: C.ACU 06:15 → C.3E 06:44 → ENRESERV 11:50
PROVIDERS: ADMIT Orthopaedic Surgery Sports Medicine; ATTEND Orthopaedic Surgery Sports Medicine
PROC: 0SRC0J9 Replacement of Right Knee Joint with Synthetic Substitute, Cemented, Open Approach (ICD-10-PCS; principal; 2017-05-29 08:30)
DX: M17.11 Unilateral primary osteoarthritis, right knee (principal); Z68.41 Body mass index [BMI] 40.0-44.9, adult; M21.161 Varus deformity, not elsewhere classified, right knee; M25.461 Effusion, right knee; I10 Essential (primary) hypertension; J45.20 Mild intermittent asthma, uncomplicated; K21.9 Gastro-esophageal reflux disease without esophagitis; G62.9 Polyneuropathy, unspecified; M79.7 Fibromyalgia; G40.909 Epilepsy, unspecified, not intractable, without status epilepticus; G47.33 Obstructive sleep apnea (adult) (pediatric); F41.9 Anxiety disorder, unspecified; F32.9 Major depressive disorder, single episode, unspecified; E66.01 Morbid (severe) obesity due to excess calories; Z99.89 Dependence on other enabling machines and devices; Z79.1 Long term (current) use of non-steroidal anti-inflammatories (NSAID); Z79.899 Other long term (current) drug therapy; Z91.040 Latex allergy status; Z91.011 Allergy to milk products

== ENCOUNTER 2018-09-19 07:32 | Inpatient (IN) ==
--- NOTE | 2018-08-17 11:13 | PAT Medication Instructions ---
Medication Instructions Date of Service August 17, 2018 Home Medications Medication Instructions Recorded citalopram 20 mg tablet 20 mg PO DAILY #30 tab 08/14/18 albuterol sulfate [ProAir HFA] 2 puff INHALATION QID PRN losartan 50 mg PO HS meloxicam 15 mg PO QAM ranitidine HCl 150 mg PO BID triamcinolone acetonide 1 applic TOPICAL BID PRN vitamin P03-mpbit acid 1 tab PO QAM gabapentin 1,200 mg PO HS gabapentin 600 mg PO BID fluticasone propionate 1 spray INTRANASAL BID citalopram 20 mg tablet 20 mg PO DAILY ASK your surgeon for instructions meloxicam 15 mg PO QAM STOP taking 24 hours before surgery triamcinolone acetonide 1 applic TOPICAL BID PRN Take morning of surgery With a small sip of water, OTHERWISE NOTHING TO EAT OR DRINK AFTER MIDNIGHT: albuterol sulfate [ProAir HFA] 2 puff INHALATION QID PRN (if needed, and bring with you to the hospital) ranitidine HCl 150 mg PO BID gabapentin 600 mg PO BID fluticasone propionate 1 spray INTRANASAL BID citalopram 20 mg tablet 20 mg PO DAILY Take evening before surgery albuterol sulfate [ProAir HFA] 2 puff INHALATION QID PRN (if needed) losartan 50 mg PO HS ranitidine HCl 150 mg PO BID gabapentin 1,200 mg PO HS gabapentin 600 mg PO BID fluticasone propionate 1 spray INTRANASAL BID Other Notes If you have any questions please call us at [phone] or [phone] or [phone] or [phone]
--- NOTE | 2018-08-17 11:29 | Anesthesiology Consultation ---
Date of Service August 17, 2018 Assessment & Plan (1) Encounter for pre-operative examination: PCP clearance (Chapito Gant) 09/07 = "No acute complaints at this time. Physical examination was unremarkable. Metabolic screening was also unremarkable. EKG demonstrated normal sinus rhythm with no acute cardiac ischemia. At this time the patient is within acceptable medical risk for her procedure scheduled for September 19." Chart Review Chart Review: Acceptable Risk for Surgery and Patient seen in Pre [facility] Teaching & Discussion Instructed NPO after midnight before surgery, except medications with 15 cc of water. Medication instructions provided according to the PAT guidelines. History Surgery Operation Date: 09/19/18 09:50 Proposed Procedures p Left Total Knee Arthroplasty - Shaun Ladd MD Height/Weight Height: 5 ft 6 in Weight: 116.3 kg Allergies Allergy/AdvReac Type Severity Reaction Status Date / Time latex Allergy Intermediate REDDENED Verified 09/07/18 13:15 RASH milk Allergy Mild DIARRHEA Verified 09/07/18 13:15 No Known Drug Allergies Allergy Unknown . Verified 08/28/18 15:56 Medications Home Medications Medication Instructions Recorded Confirmed Last Taken albuterol sulfate [ProAir HFA] 2 puff INHALATION QID PRN 11/03/17 09/07/18 10/10/17 losartan 50 mg PO HS 11/03/17 09/07/18 11/06/17 meloxicam 15 mg PO QAM 11/03/17 09/07/18 11/06/17 ranitidine HCl 150 mg PO BID 11/03/17 09/07/18 11/07/17 06:30 vitamin R45-xnuwa acid 1 tab PO QAM 11/03/17 09/07/18 Unknown gabapentin 1,200 mg PO HS 07/01/18 09/07/18 Unknown gabapentin 600 mg PO BID 07/01/18 09/07/18 Unknown fluticasone propionate 1 spray INTRANASAL BID 08/09/18 09/07/18 Unknown citalopram 20 mg tablet 20 mg PO DAILY #30 tab 08/14/18 09/07/18 Unknown amoxicillin 875 mg-potassium PO .TAKE 1 TABLET EVERY #28 tab 08/21/18 08/28/18 Unknown clavulanate 125 mg tablet cholecalciferol (vitamin D3) 5,000 PO .Take 1 tablet daily cap 08/21/18 08/28/18 Unknown unit capsule lactase 3,000 unit tablet PO .TAKE TABLET PRN tab 08/21/18 08/28/18 Unknown azelastine 137 mcg (0.1 %) nasal INTRANASAL .instill 2 sprays int 08/22/18 08/28/18 Unknown spray aerosol #1 ml vitamin B complex tablet 1 tab PO DAILY 08/22/18 08/28/18 Unknown triamcinolone acetonide 0.025 % 1 applic TOPICAL BID PRN #80 gm 09/03/18 Unknown topical cream Past Medical History Medical History Anxiety Asthma albuterol prn, depends on seasonal allergies Depression Deviated septum FX NARES IN PAST Environmental allergies Fibromyalgia GERD (gastroesophageal reflux disease) Hiatal hernia Hypertension Osteoarthritis Seizure 1993 AND 1994 (UNSURE OF REASON), was on Dilantin for a short time, none x 8 yrs Sleep apnea CPAP Exercise / Class Metabolic Activity II 4-5 Yardwork/Stairs/Walk up hill (Denies SOB or CP with stairs) Past Family History Family History Mother Breast implant rupture Stroke Hypertension Father Pancreatic cancer Aunt Crohn's disease Unknown Hypertension Asthma Cancer FHx: allergies Other No significant family history Past Surgical History Surgical History H/O exploratory laparotomy Pt states related to high ammonia levels, unclear on details History of arthroscopy LEFT History of bilateral tubal ligation History of carpal tunnel release LEFT History of section History of colonoscopy History of dilatation and curettage ABLATION History of tooth extraction History of total knee replacement RT Past Anesthesia History No Hx of Anesthesia Complications and No Family Hx of Anesthesia Complications 05/2017 TKA = SAB+PNB, no issues noted. History of PONV No Hx of PONV and No Hx of Motion Sickness Social History Smoking Status: Never smoker Do You Dip or Chew Tobacco: No Hx Alcohol Use: Yes alcohol intake frequency: holidays/special occasions only Hx Substance Use: No substance use type: does not use Review of Systems Pt denies any recent chest pain, shortness of breath, palpitations, cough, fever or URI. Physical Exam Vital Signs BP: 130/83 P: 78bpm SPO2: 98% RA T: 98.5 F R: 16 ENMT Mouth: + dental restorations (one implant); no chipped teeth and no loose teeth Thyromental Distance: < 3.5 Finger Breadths (3) Mallampati Class: I Neck normal visual inspection; neck extension not limited Respiratory normal respiratory effort Auscultation: lungs clear to auscultation bilaterally Cardiovascular Rate/Rhythm: regular rate and regular rhythm Heart Sounds: no murmur Vessels: no carotid bruit Extremities: no edema Testing Laboratory Results 08/17/18 11:45 PT 10.2 Seconds (9.0-12.0) 08/17/18 11:45 INR 1.0 (0.9-1.1) 08/17/18 11:45 APTT 29.8 Seconds (21.0-31.0) 08/17/18 11:45 Hemoglobin A1c 4.9 % (4.5-5.6) 08/17/18 11:45 Urine Color Yellow 08/17/18 11:45 Urine Appearance Clear (Clear) 08/17/18 11:45 Urine pH 5.5 (4.5-7.5) 08/17/18 11:[address] 1.018 (1.000-1.030) 08/17/18 11:45 Urine Protein Negative (Negative) 08/17/18 11:45 Urine Glucose (UA) Negative (Negative) 08/17/18 11:45 Urine Ketones Negative (Negative) 08/17/18 11:45 Urine Nitrite Negative (Negative) 08/17/18 11:45 Ur Leukocyte Esterase Negative (Negative) 08/17/18 11:45 Blood Type O Positive 08/17/18 11:45 Antibody Screen NEGATIVE 08/17/18 11:45 Electrocardiogram Date: 08/17/18 Findings: + NSR @ (78 with sinus arrhythmia) Right atrial enlargement. Chest X-Ray Date: 07/01/18 Minimal right lower lung opacity. Atelectasis is favored. An infectious process could appear similar although is considered less likely. *Pt was treated for possible pneumonia with Zithromax, symptoms resolved, lungs CTA on exam at [facility].
[2018-08-17 13:11] LABS: Albumin Level 3.7 gm/dl (3.4-5.0); BUN Creatinine Ratio 24.4 (10-20); Calcium 8.7 mg/dl (8.5-10.1); Creatinine Clr Calc Pharmacy 99.3 ml/min; Est GFR (Non-African American) 79.4; Potassium 3.8 mmol/L (3.5-5.1)
[2018-08-17 13:12] LABS: Partial Thromboplastin Ratio 1.1; Partial Thromboplastin Time 29.8 Seconds (21.0-31.0); Prothrombin Time 10.2 Seconds (9.0-12.0)
[2018-08-17 13:29] LABS: Estimated Average Glucose 94 mg/dl; Hemoglobin A1C 4.9 % (4.5-5.6)
[2018-08-17 13:33] LABS: Appearance Urine Clear (Clear); Bilirubin Urine Negative (Negative); Blood Urine Negative (Negative); Color Urine Yellow; Glucose Urine UA Negative (Negative); Ketones Urine Negative (Negative); Leukocyte Esterase Urine Negative (Negative); Nitrite Urine Negative (Negative); Protein Urine Negative (Negative); Specific Gravity Urine 1.018 (1.000-1.030); Urobilinogen Urine Negative (Negative); pH Urine 5.5 (4.5-7.5)
--- NOTE | 2018-09-18 18:43 | History and Physical Report ---
DATE OF ADMISSION: 09/19/2018 CHIEF COMPLAINT: Chronic left knee pain. HISTORY OF PRESENT ILLNESS: This is a 57-year-old female patient of Dr. Ladd'russ complaining of chronic left knee pain, longstanding, now progressively getting worse. The patient has failed conservative treatment including intra-articular injections, anti-inflammatories, home exercise program and the use of a brace. The patient has been diagnosed with end-stage osteoarthritis per clinical and radiographic exams. The patient has increased pain with weightbearing activities and her pain does interfere with her activities of daily living. PAST MEDICAL HISTORY: Hypertension, asthma, sleep apnea, anxiety, peripheral neuropathy, history of seizure disorder, osteoarthritis, spine problems, sciatica, acid reflux, hiatal hernia, obesity. SOCIAL HISTORY: Nonsmoker, nondrinker. FAMILY HISTORY: Noncontributory. REVIEW OF SYSTEMS: Left knee pain and instability. Otherwise, denies any shortness of breath, chest pain, nausea, vomiting or any other joint complaints. MEDICATIONS: 1. Ventolin 90 mcg actuation 2 puffs every 4-6 hours as needed. 2. Fluticasone 50 mcg actuation 2 sprays each nostril daily. 3. Ranitidine 150 mg twice daily. 4. Duloxetine 60 mg daily. 5. Vitamin B complex daily. 6. Gabapentin 600 mg twice daily. 7. Singulair 10 mg daily. 8. Azelastine 137 mcg 2 sprays nasally twice daily as needed. 8. Losartan 50 mg daily. 9. Ipratropium bromide as needed in the morning. ALLERGIES: LATEX AND MILK. PHYSICAL EXAMINATION: GENERAL: Well-developed, well-nourished 57-year-old female in no acute distress. She is alert and oriented x3 and pleasant. HEENT: Normocephalic, atraumatic. Extraocular motions are intact. Pupils are equal and reactive to light. HEART: Regular rate and rhythm, no murmurs appreciated. LUNGS: Clear. ABDOMEN: Soft, nontender, bowel sounds present. EXTREMITIES: Left knee reveals a limited range of motion of negative 10-100 degrees of range of motion. She has a varus deformity with medial joint line tenderness. She has a positive Katharine sign. She has 5/5 strength with pain. Neurologically and neurovascularly she is intact in her left lower extremity. DIAGNOSES: Left knee end-stage osteoarthritis, hypertension, sleep apnea, anxiety, peripheral neuropathy, history of seizure disorder, osteoarthritis, spine problems, sciatica, acid reflux, hiatal hernia, obesity. PLAN: The patient was advised of her diagnosis. Indications, risks, benefits, postop course have all been reviewed. The patient wished to proceed with a left total knee arthroplasty. Necessary consent forms, preoperative testing and clearances will be obtained.
[~2018-09-19 07:32] MED LIST changes: -ALBU18002 INH; -B-COTAB53 PO; +BUPIVACAINE 0.5 % 5 MG/1 ML PF 10ML VIAL ONE; +CEFAZOLIN 2000MG 2,000 MG/15 ML SYR IV SCH; -CEFAZOLIN 2000MG IV PUSH 15 ML IV SCH; -CYAN100073 PO; -DEXAMETHASONE 4 MG TAB PO SCH; -DOCU-94 PO; -DULO60CA44 PO; -FLUT0.15 NAE; -GABA-113 PO; -LACT3000 PO; -LACTATED RINGER'S 1000ML 1,000 ML IV SCH; +LR 500ML BOLUS, THEN 15ML/HR IV SCH; -MELO7.5T5 PO; -METOCLOPRAMIDE HCL 10 MG TAB PO SCH; +METOCLOPRAMIDE HCL 10 MG TABLET PO SCH; -RANI150T85 PO; +ROPIVACAINE 0.5% 5 MG/ML 30 ML VIAL ONE; +ROPIVACAINE 0.5% HCL/PF 150 MG, BUPIVACAINE 0.5% MPF 30 ML, EPINEPHrine 30MG/30ML (OR U... INSTIL SCH; -ROPIVACAINE 5MG/ML 30 ML 150 MG, BUPIVACAINE 0.5% MPF INJ 30 ML, EpINEphrine HCL INJ 0.... INFIL SCH; +TRANEXAMIC ACID 1,000 MG **IV Intra-op IV SCH; +TRANEXAMIC ACID 1,000 MG **IV Pre-op IV SCH; -TRMCR180 TOP; -TURM500T PO; +dexAMETHasone 4 MG TAB PO SCH
[2018-09-19] MEDS ORDERED: MIDAZOLAM HCL 1 MG/ML 2ML VIAL ONE ×2 (08:20)
[2018-09-19] MEDS ORDERED: fentaNYL citrate 100 MCG/2 ML VIAL ONE (08:20)
[2018-09-19] MEDS ORDERED: ATROPINE SULFATE 0.1 MG/ML 10ML SYR IV PRN (08:51)
[2018-09-19] MEDS ORDERED: fentaNYL citrate 100 MCG/2 ML VIAL IV PRN (08:51)
[2018-09-19] MEDS ORDERED: ePHEDrine sulfate 50 MG/ML AMP IV PRN (08:51)
[2018-09-19] MEDS ORDERED: ONDANSETRON INJ 2 MG/ML 2 ML VIAL IV PRN (08:51)
[2018-09-19] MEDS ORDERED: LIDOCAINE HCL 2% 2 ML VIAL/AMP(20MG/ML) INFIL ONE (08:52)
[2018-09-19] MEDS ORDERED: PROPOFOL IV EMULSION 10 MG/ML 20 ML VIAL IV ONE ×2 (08:52→11:17)
--- NOTE | 2018-09-19 09:40 | History & Physical Bridge Note ---
Date of Service September 19, 2018 History & Physical Bridge Note I have examined the patient, reviewed the History & Physical and in the interval since the performance of the History & Physical I have noted the following changes of clinical significance: no changes noted
[2018-09-19] MEDS ORDERED: ORTHO JOINT ANESTHETIC ONE (09:44)
[2018-09-19] MEDS ORDERED: BACITRACIN INJ 50,000 UNIT VIAL ONE (09:44)
--- NOTE | 2018-09-19 12:07 | Post Operative Brief Note ---
Immediate Post Op Note v1 Date of Surgery September 19, 2018 Pre & Post Diagnosis Operation Date: 09/19/18 09:50 Pre-Op Diagnosis: Left Knee Osteoarthritis morbid obesity BMI 40.4 Post-Op Diagnosis: Left Knee Osteoarthritis morbid obesity BMI 40.4 Procedure Operation Date: 09/19/18 09:50 Actual Procedures p Left Total Knee Arthroplasty(Right), increased level difficulty BMI 40.4- Shaun Ladd MD Surgeon Shaun Ladd MD Pan Helper Timothy GRAVES Estimated Blood Loss 5 Findings Consistent with Post-Op Diagnosis Specimens Bone cuts Drains Hemovac Drain (10fr dual lumen ) and Other Anesthesia Type MAC Spinal Regional Complications none Disposition Accompanied Patient To Recovery: No Disposition: Recovery Room Overlapping Procedure I was immediately available: during the entire case.
--- NOTE | 2018-09-19 12:33 | Operative Report ---
Post Operative Report Pre & Post Diagnosis Operation Date: 09/19/18 09:50 Pre-Op Diagnosis: Left Knee Osteoarthritis morbid obesity BMI 40.4 Post-Op Diagnosis: Left Knee Osteoarthritis morbid obesity BMI 40.4 Procedure Operation Date: 09/19/18 09:50 Actual Procedures : Left Total Knee Arthroplasty increased difficulty obesity BMI 40.4, application superficial wound VAC- Shaun Ladd MD Surgeon Shaun Ladd MD Braille Teacher Timothy GRAVES Estimated Blood Loss 5 Findings Consistent with Post-Op Diagnosis Specimens Bone cuts Drains 2 Hemovac and superficial wound VAC Anesthesia Type MAC Spinal Regional Complications none Disposition Accompanied Patient To Recovery: No Disposition: Recovery Room Indications 57-year-old female with progressive osteoarthritis of left knee failed conservative management. She has grade 4 osteoarthritis patellofemoral medial compartment. She has successful right knee replacement now presents for left knee replacement. Description of Procedure The patient was taken to the operating room and anesthetized under spinal MAC regional. Patient was placed supine on the the operating table. A pneumatic tourniquet was placed about the left obese upper thigh. The knee exam demonstrated varus knee no instability moderate effusion moderate obesity knee area. The involved leg was elevated exsanguinated with Esmarch bandage and the pneumatic tourniquet was raised to 350 millimeters mercury. A longitudinal incision was made across the anterior knee. Skin flaps were elevated. An incision was made into the medial retinaculum and extended up into the mid third of the quadriceps tendon and extended down to the tibial tubercle. Intra- articular findings demonstrated tricompartmental osteoarthritis grade 4 patellofemoral grade 4 medial compartment grade 3 lateral compartment small loose body. The knee was exposed by excising cruciate ligaments and menisci. The infrapatellar fat pad was resected. The fat pad over the anterior femur at the upper aspect of the articular surface was resected for placement of the component in that area. A subperiosteal peel lateral release was performed around the patella. The [employer] journey 2.0 total knee arthroplasty system was utilized for the procedure. The custom femoral cutting guide was pinned in position. The distal femoral cut was made. The size 5, 5 in 1 cutting block was placed. The anterior posterior and chamfer cuts were made. The knee was extended and a free hand cut technique was performed to the patella. The patella with was measured and the width was reproduced using a 35 symmetrical patella component. 3 drill holes are made for the patella component pegs. The tibia was then subluxed. The custom tibial cutting block was pinned in position and the proximal tibial cut was made with the oscillating saw. A [employer] controller was used to assess ligamentous balance. Flexion extension gaps were balanced. This required medial and posterior medial release on the tibia. The size 4 tibial trial was externally rotated in line with the tibial tubercle and pinned in position. The punch for the stem was used. The femoral trial was inserted and centered the notch cutting devices were used and the collet was placed. Tibial trials were used for the insert. The size 11 trial gave balanced ligaments through full range of motion. Patella tracking was assessed with range of motion. The patella tracked centrally. The trials were removed. The Orthomix anesthetic cocktail was injected per protocol. The cut bone surfaces and soft tissue were copiously irrigated with antibiotic solution with bacitracin. The final components were cemented with Simplex cement. The final components were [employer]hew journey 2.0 size 5 left posterior stabilized femoral component, 4 tibial baseplate, 11 high flex polyethylene posterior stabilized tibial insert and a 35 symmetrical patella. While the cement cured the Betadine soak was used per protocol. When the cement cured the knee was copiously irrigated with pulsatile lavage antibiotic solution with bacitracin. 2 drains were brought out laterally [facility]. The quadriceps tendon and medial retinaculum were closed with interrupted [id number] #1 Vicryl sutures. The knee was taken through full range of motion and repair was secure. The subcutaneous tissues were closed with 2-0 Vicryl sutures. The skin was closed with roby. A sterile superficial wound VAC dressing was applied. The tourniquet was let down and the patient had good capillary refill to the extremity. The patient tolerated the procedure well. There was some generalized increased level difficulty throughout the case due to her obesity. My physician railways assistant Timothy GRAVES assisted in the procedure including prepping draping leg positioning soft tissue retraction instrument management and assisted in the closure ,dressings application and will participate in postoperative care the patient. I attest to the content of the Intraoperative Record and any orders documented therein. Any exceptions are noted below.
--- NOTE | 2018-09-19 12:56 | XRay Report ---
TWO VIEWS LEFT KNEE CLINICAL HISTORY: Postoperative examination. FINDINGS: AP and crosstable lateral portable views of the left knee are obtained. A left knee arthrop lasty is in near anatomic alignment. There has been undersurface remodeling of the patella. No acute fracture is seen. There are expected postoperative changes around the knee including skin clips, a gonzalez rgical drain, soft tissue edema, and subcutaneous gas. IMPRESSION: Expected postoperative changes status post left knee arthroplasty. No acute fracture is s een. Electronically signed by: Tripp Galvan M.D. 09/19/2018 12:54 PM
--- NOTE | 2018-09-19 12:57 | Anesthesiology Progress Note ---
Date of Service September 19, 2018 Anesthesia Post Procedure Vital Signs Vital Signs: Temp Pulse Pulse Resp BP Pulse Ox 09/19/18 12:50 64 16 105/76 93 09/19/18 12:40 68 16 124/80 93 09/19/18 12:30 79 16 125/75 94 09/19/18 12:20 80 16 132/83 97 09/19/18 12:13 98.2 F 90 18 132/78 95 09/19/18 08:09 97.7 F 73 18 150/92 H 95 Transfer of Care Handoff Completed per policy Notes Mental Status: alert / awake / arousable and participated in evaluation Patient Amnestic to Procedure: Yes Nausea / Vomiting: adequately controlled Pain: adequately controlled Airway Patency, RR, SpO2: stable & adequate BP & HR: stable & adequate Hydration State: stable & adequate Neuraxial Anesthesia: was administered and sensory block is resolving Anesthetic Complications: no major complications apparent and Pt Satisfied with anesthetic care
[2018-09-19] MEDS ORDERED: MAGNESIUM HYDROXIDE SUSP 30 ML UDC PO PRN (13:49)
[2018-09-19] MEDS ORDERED: HYDROmorphone INJ 0.5 MG/0.5 ML SYR IV PRN (13:49)
[2018-09-19] MEDS ORDERED: TRIAMCINOLONE ACET 0.025% CR 15 GM TUBE TOP PRN (13:49)
[2018-09-19] MEDS ORDERED: SODIUM CHLORIDE 0.9% 1000ML 1,000 ML IV SCH (13:49)
[2018-09-19] MEDS ORDERED: ALBUTEROL HFA 8 GM INHALER INH PRN (13:49)
[2018-09-19] MEDS ORDERED: LACTASE 3000 UNIT TAB PO PRN (13:49)
[2018-09-19] MEDS ORDERED: BISACODYL 10 MG SUPP PR PRN (13:49)
[2018-09-19] MEDS ORDERED: NALOXONE HCL 0.4 MG/1 ML VIAL/CARP IV PRN (13:49)
[2018-09-19] MEDS: GABAPENTIN 600 MG TAB PO SCH ×2 (14:38→20:25)
[2018-09-19] MEDS ORDERED: PNEUMOCOCCAL POLYSACCHARIDES 25 MCG/0.5 ML VIAL/SYR IM ONE (14:45)
[2018-09-19] MEDS ORDERED: PNEUMOCOCCAL ADMINISTRATION CHARGE ONE (14:45)
[2018-09-19] MEDS: AZELASTINE: ORDER AWAITING ACTION SCH ×2 (15:46→23:41)
[2018-09-19] MEDS: ACETAMINOPHEN 500 MG TAB PO SCH ×2 (15:47→21:47)
[2018-09-19] MEDS: CEFAZOLIN 2000MG 2,000 MG/15 ML SYR IV SCH (17:35)
[2018-09-19] MEDS: SENNA 8.6 MG TAB PO SCH (20:25)
[2018-09-19] MEDS: CeleBREX 200 MG CAP PO SCH (20:25)
[2018-09-19] MEDS: FLUTICASONE PROPIONATE NA SPR 16 GM BTL SCH (20:25)
[2018-09-19] MEDS: LOSARTAN POTASSIUM 50 MG TAB PO SCH (20:25)
[2018-09-19] MEDS: DOCUSATE SODIUM 100 MG CAP PO SCH (20:26)
--- NOTE | 2018-09-19 21:13 | Internal Medicine Consult Note ---
Date of Consultation September 19, 2018 Assessment & Plan (1) Osteoarthritis of left knee: S/P left TKA Likely Secondary to being morbidly obese BMI above 40. Management as per primary TEAM DVT prohylaxis as per primary team (2) Hypertension: BP is at goal. will continue home meds (3) Anxiety: table. will monitor (4) Asthma: Controlled. Patient does not require any nebs at this time (5) Fibromyalgia: Controlled. will continue gabapentin (6) Morbidly obese: Recommend lifestyle changes. will defer to PCP. Thank you for allowing us on the case. Leathatnll sign off for now. Please call if you have any questions History of Present Illness Reason for Consultation: Medical managment for comorbidities. Requesting Physician: Ted Jones MD Attending Physician: Shaun Ladd MD History of Present Illness This is a pleasant 57 yo female who is admitted for left total knee replacement. It appears to was due to her bmi being above 40 which would place her in the category of morbidly obese. She has history of asthma, hypertension, anxiety, fibromyalgia. Currently she denies any complaints aside from pain in her affected joint. ROS is below. Allergies Allergy/AdvReac Type Severity Reaction Status Date / Time latex Allergy Intermediate REDDENED Verified 09/07/18 13:15 RASH milk Allergy Mild DIARRHEA Verified 09/07/18 13:15 No Known Drug Allergies Allergy Unknown . Verified 08/28/18 15:56 Home Medications Home Medications Medication Instructions Recorded Confirmed Type albuterol sulfate [ProAir HFA] 2 puff INHALATION QID PRN 11/03/17 09/19/18 History losartan 50 mg PO HS 11/03/17 09/19/18 History meloxicam 15 mg PO QAM 11/03/17 09/19/18 History ranitidine HCl 150 mg PO BID 11/03/17 09/19/18 History vitamin S18-ottrp acid 1 tab PO QAM 11/03/17 09/19/18 History gabapentin 1,200 mg PO HS 07/01/18 09/19/18 History gabapentin 600 mg PO BID 07/01/18 09/19/18 History fluticasone propionate 1 spray INTRANASAL BID 08/09/18 09/19/18 History citalopram 20 mg tablet 20 mg PO DAILY #30 tab 08/14/18 09/19/18 Rx amoxicillin 875 mg-potassium 1 tab PO .TAKE 1 TABLET EVERY #28 08/21/18 09/19/18 History clavulanate 125 mg tablet tab cholecalciferol (vitamin D3) 5,000 1 unit PO .Take 1 tablet daily cap 08/21/18 09/19/18 History unit capsule lactase 3,000 unit tablet 3,000 unit PO .TAKE TABLET PRN 08/21/18 09/19/18 History tab azelastine 137 mcg (0.1 %) nasal 1 spray INTRANASAL .instill 2 08/22/18 09/19/18 History spray aerosol sprays int #1 ml vitamin B complex tablet 1 tab PO DAILY 08/22/18 09/19/18 History triamcinolone acetonide 0.025 % 1 applic TOPICAL BID PRN #80 gm 09/03/18 09/19/18 Rx topical cream Patient History Medical History Environmental allergies Anxiety Asthma albuterol prn, depends on seasonal allergies Depression Deviated septum FX NARES IN PAST Fibromyalgia GERD (gastroesophageal reflux disease) Hiatal hernia Hypertension Osteoarthritis Seizure 1993 AND 1994 (UNSURE OF REASON), was on Dilantin for a short time, none x 8 yrs Sleep apnea CPAP Surgical History History of carpal tunnel release LEFT H/O exploratory laparotomy Pt states related to high ammonia levels, unclear on details History of arthroscopy LEFT History of bilateral tubal ligation History of section History of colonoscopy History of dilatation and curettage ABLATION History of tooth extraction History of total knee replacement RT Family History Mother Breast implant rupture Stroke Hypertension Father Pancreatic cancer Aunt Crohn's disease Unknown Hypertension Asthma Cancer FHx: allergies Other No significant family history Social History Preferred Language: [place] Communication Ability: Effective Cellular Equipment Repairer Required: No Beliefs That Will Affect Care: None Current Living Situation: Family Other Information That Helps Us Care for You: No Feels Safe at Home: Yes Safety Concerns: Feels Safe At This Time Smoking Status: Never smoker Do You Dip or Chew Tobacco: No ; Second Hand Exposure: No ; Tobacco Cessation Education Requested by Patient: No Hx Alcohol Use: No Hx Substance Use: No Review of Systems Constitutional: no fever, no sweats, no body aches and no malaise Eyes: no diplopia and no decreased night vision Ear, Nose, Mouth, Throat: no ear pain and no tinnitus Respiratory: no change in sputum and no hemoptysis Cardiovascular: no chest pain with activity Gastrointestinal: no bloating Musculoskeletal: no radicular pain Integumentary: no rash Neurologic: no falls Psychiatric: no hopelessness Hematologic / Lymphatic: no coagulopathy Physical Exam Constitutional: well developed, well nourished and + morbidly obese Eyes: PERRL, conjunctivae normal, anicteric sclerae ENMT: external ear and nose normal, oropharynx normal Neck: trachea midline, no thyromegaly Respiratory: normal respiratory effort, lungs clear to auscultation Cardiovascular: RRR, no murmur, no edema Gastrointestinal (Abdomen): normal bowel sounds, soft, nontender, no hepatosplenomegaly Skin: no rashes, warm and dry Psychiatric: A+Ox3, euthymic affect Lymphatic: no cervical or axillary lymphadenopathy Results & Data Vital Signs (Past 12 Hours) Vital Signs Temp Pulse Pulse Resp BP Pulse Ox 09/19/18 20:23 65 120/75 09/19/18 15:33 36.7 C 63 17 118/75 93 09/19/18 14:36 36.6 C 71 18 119/74 92 09/19/18 13:59 36.5 C 62 18 162/90 H 94 09/19/18 13:30 37.0 C 66 16 123/69 95 09/19/18 13:20 65 14 110/74 98 09/19/18 13:10 68 14 135/70 95 09/19/18 13:00 37 C 67 14 122/72 94 09/19/18 12:50 64 16 105/76 93 09/19/18 12:40 68 16 124/80 93 09/19/18 12:30 79 16 125/75 94 09/19/18 12:20 80 16 132/83 97 09/19/18 12:13 36.8 C 90 18 132/78 95 PG Care Time/CCT Total # of Minutes Spent Total Time Spent with Patient: Total time spent is greater than 50% in coordination of care (as documented) at patient's floor/unit and/or counseling patient:
[2018-09-20] MEDS: CEFAZOLIN 2000MG 2,000 MG/15 ML SYR IV SCH (02:14)
[2018-09-20] MEDS: ACETAMINOPHEN 500 MG TAB PO SCH ×3 (05:47→21:12)
[2018-09-20 05:55] LABS: Hematocrit (blood only) 33.9 % (37-47); Hemoglobin 11.5 g/dL (12.0-16.0); Mean Corpuscular Hgb Conc 33.9 g/dL (32-36); Mean Platelet Volume 10.6 fL (7.4-10.4); Platelet Count 174 K/uL (130-400); RDW Coefficient of Variation 12.1 % (11.5-14.5); Red Blood Count 3.81 M/uL (4.2-5.4)
[2018-09-20 06:31] LABS: BUN Creatinine Ratio 15.8 (10-20); Calcium 8.6 mg/dl (8.5-10.1); Creatinine Clr Calc Pharmacy 109.8 ml/min; Est GFR (African American) 105.7; Est GFR (Non-African American) 91.2; Potassium 3.9 mmol/L (3.5-5.1)
[2018-09-20] MEDS: CeleBREX 200 MG CAP PO SCH ×2 (08:08→20:23)
[2018-09-20] MEDS: VITAMIN B COMPLEX TAB PO SCH (08:08)
[2018-09-20] MEDS: CHOLECALCIFEROL 1,000 UNITS TAB PO SCH (08:08)
[2018-09-20] MEDS: FOLIC ACID 1 MG TAB PO SCH (08:08)
[2018-09-20] MEDS: MULTIVITAMIN TAB PO SCH (08:09)
[2018-09-20] MEDS: DOCUSATE SODIUM 100 MG CAP PO SCH ×2 (08:09→20:23)
[2018-09-20] MEDS: CITALOPRAM 20 MG TAB PO SCH (08:09)
[2018-09-20] MEDS: GABAPENTIN 600 MG TAB PO SCH ×3 (08:09→20:24)
[2018-09-20] MEDS: AZELASTINE: ORDER AWAITING ACTION SCH ×2 (08:10→16:17)
[2018-09-20] MEDS: FLUTICASONE PROPIONATE NA SPR 16 GM BTL SCH ×2 (08:12→20:21)
--- NOTE | 2018-09-20 08:17 | Orthopedic Progress Note ---
Date of Service September 20, 2018 Assessment & Plan (1) Osteoarthritis of left knee: Postop day 1 status post left TKA. PT/OT protocols. Weightbearing as tolerated. DVT prophylaxis with rivaroxaban, SCDs, VAISHNAVI hose. Continue current pain regimen. Plan for dressing change in the a.m. Subjective Postop day 1 status post left total knee arthroplasty. Patient is currently lying in bed awake and alert. She has no complaints. Pain is controlled. Denies shortness of breath, chest pain, lightheadedness. Physical Exam Physical Exam: Dressings are clean, dry, and intact. Calves are soft, nontender. Neurovascular is intact. Toes are mobile. Hemovac drainage was approximately 100 cc the previous shift. Results & Data Vital Signs (Past 12 Hours) Vital Signs Temp Pulse Pulse Resp BP Pulse Ox 09/20/18 07:13 36.5 C 60 18 121/80 09/20/18 02:50 36.5 C 60 14 104/67 99 09/19/18 23:29 36.5 C 63 14 116/70 96 09/19/18 20:23 65 120/75 Laboratory Results Laboratory Results WBC 11.20 K/uL (4.8-10.8) H 09/20/18 05:43 RBC 3.81 M/uL (4.2-5.4) L 09/20/18 05:43 Hgb 11.5 g/dL (12.0-16.0) L 09/20/18 05:43 Hct 33.9 % (37-47) L 09/20/18 05:43 MCV 89.0 fL (80-100) 09/20/18 05:43 MCH 30.2 pg (25-34) 09/20/18 05:43 MCHC 33.9 g/dL (32-36) 09/20/18 05:43 RDW Std Deviation 39.0 fL (36.4-46.3) 09/20/18 05:43 RDW Coeff of Don 12.1 % (11.5-14.5) 09/20/18 05:43 Plt Count 174 K/uL (130-400) 09/20/18 05:43 MPV 10.6 fL (7.4-10.4) H 09/20/18 05:43 PT 10.2 Seconds (9.0-12.0) 08/17/18 11:45 INR 1.0 (0.9-1.1) 08/17/18 11:45 APTT 29.8 Seconds (21.0-31.0) 08/17/18 11:45 PTT Ratio 1.1 08/17/18 11:45 Sodium 144 mmol/L (136-145) 09/20/18 05:43 Potassium 3.9 mmol/L (3.5-5.1) 09/20/18 05:43 Chloride 113 mmol/L (98-107) H 09/20/18 05:43 Carbon Dioxide 26 mmol/L (21-32) 09/20/18 05:43 Anion Gap 5.0 (3-11) 09/20/18 05:43 BUN 12 mg/dl (7-18) 09/20/18 05:43 Creatinine 0.74 mg/dl (0.6-1.2) 09/20/18 05:43 Est Cr Clr Drug Dosing 109.8 ml/min 09/20/18 05:43 Est GFR ( Amer) 105.7 09/20/18 05:43 Est GFR (Non-Af Amer) 91.2 09/20/18 05:43 BUN/Creatinine Ratio 15.8 (10-20) 09/20/18 05:43 Glucose 109 mg/dl (70-99) H 09/20/18 05:43 Estimat Average Glucose 94 mg/dl 08/17/18 11:45 Hemoglobin A1c 4.9 % (4.5-5.6) 08/17/18 11:45 Calcium 8.6 mg/dl (8.5-10.1) 09/20/18 05:43 Albumin 3.7 gm/dl (3.4-5.0) 08/17/18 11:45 Urine Color Yellow 08/17/18 11:45 Urine Appearance Clear (Clear) 08/17/18 11:45 Urine pH 5.5 (4.5-7.5) 08/17/18 11:45 Ur Specific [place] 1.018 (1.000-1.030) 08/17/18 11:45 Urine Protein Negative (Negative) 08/17/18 11:45 Urine Glucose (UA) Negative (Negative) 08/17/18 11:45 Urine Ketones Negative (Negative) 08/17/18 11:45 Urine Blood Negative (Negative) 08/17/18 11:45 Urine Nitrite Negative (Negative) 08/17/18 11:45 Urine Bilirubin Negative (Negative) 08/17/18 11:45 Urine Urobilinogen Negative (Negative) 08/17/18 11:45 Ur Leukocyte Esterase Negative (Negative) 08/17/18 11:45 Hepatitis C Ab Screen Neg (Neg) 09/19/18 08:13 Blood Type O Positive 08/17/18 11:45 Antibody Screen NEGATIVE 08/17/18 11:45
[2018-09-20] MEDS: RIVAROXABAN 10 MG TABLET PO SCH (08:50)
--- NOTE | 2018-09-20 09:30 | Anesthesiology Progress Note ---
Date of Service September 20, 2018 Anesthesia Post Procedure Vital Signs Vital Signs: Temp Pulse Pulse Pulse Resp BP Pulse Ox 09/20/18 07:13 36.5 C 60 18 121/80 09/20/18 02:50 36.5 C 60 14 104/67 99 09/19/18 23:29 36.5 C 63 14 116/70 96 09/19/18 20:23 65 120/75 09/19/18 15:33 36.7 C 63 17 118/75 93 09/19/18 14:36 36.6 C 71 18 119/74 92 09/19/18 13:59 36.5 C 62 18 162/90 H 94 09/19/18 13:30 37.0 C 66 16 123/69 95 09/19/18 13:20 65 14 110/74 98 09/19/18 13:10 68 14 135/70 95 09/19/18 13:00 37 C 67 14 122/72 94 09/19/18 12:50 64 16 105/76 93 09/19/18 12:40 68 16 124/80 93 09/19/18 12:30 79 16 125/75 94 09/19/18 12:20 80 16 132/83 97 09/19/18 12:13 36.8 C 90 18 132/78 95 Pain Intensity Left Knee: Pain Intensity: 2 Notes Mental Status: alert / awake / arousable and participated in evaluation Patient Amnestic to Procedure: Yes Nausea / Vomiting: adequately controlled Pain: adequately controlled Airway Patency, RR, SpO2: stable & adequate BP & HR: stable & adequate Hydration State: stable & adequate Neuraxial Anesthesia: was administered and sensory block resolved Anesthetic Complications: no major complications apparent and Pt Satisfied with anesthetic care
[2018-09-20] MEDS: LOSARTAN POTASSIUM 50 MG TAB PO SCH (20:22)
[2018-09-20] MEDS: SENNA 8.6 MG TAB PO SCH (20:23)
[2018-09-20] MEDS: OXYCODONE HCL IR 5 MG TAB (IMMEDIATE RELEASE) PO PRN (21:16)
[2018-09-21] MEDS: AZELASTINE: ORDER AWAITING ACTION SCH ×2 (00:10→08:13)
[2018-09-21] MEDS: ACETAMINOPHEN 500 MG TAB PO SCH (06:10)
[2018-09-21] MEDS: OXYCODONE HCL IR 5 MG TAB (IMMEDIATE RELEASE) PO PRN (06:10)
[2018-09-21 06:25] LABS: Hematocrit (blood only) 31.2 % (37-47); Hemoglobin 10.7 g/dL (12.0-16.0); Mean Corpuscular Hgb Conc 34.3 g/dL (32-36); Mean Corpuscular Volume 87.6 fL (80-100); Mean Platelet Volume 10.5 fL (7.4-10.4); Platelet Count 159 K/uL (130-400); RDW Coefficient of Variation 12.4 % (11.5-14.5); Red Blood Count 3.56 M/uL (4.2-5.4); White Blood Count 5.96 K/uL (4.8-10.8)
[2018-09-21 06:55] LABS: BUN Creatinine Ratio 15.2 (10-20); Calcium 8.3 mg/dl (8.5-10.1); Creatinine Clr Calc Pharmacy 102.9 ml/min; Est GFR (African American) 97.7; Est GFR (Non-African American) 84.3; Potassium 3.4 mmol/L (3.5-5.1)
[2018-09-21] MEDS: CITALOPRAM 20 MG TAB PO SCH (08:10)
[2018-09-21] MEDS: CHOLECALCIFEROL 1,000 UNITS TAB PO SCH (08:10)
[2018-09-21] MEDS: DOCUSATE SODIUM 100 MG CAP PO SCH (08:11)
[2018-09-21] MEDS: MULTIVITAMIN TAB PO SCH (08:11)
[2018-09-21] MEDS: CeleBREX 200 MG CAP PO SCH (08:12)
[2018-09-21] MEDS: VITAMIN B COMPLEX TAB PO SCH (08:12)
[2018-09-21] MEDS: RIVAROXABAN 10 MG TABLET PO SCH (08:12)
[2018-09-21] MEDS: GABAPENTIN 600 MG TAB PO SCH (08:12)
[2018-09-21] MEDS: FLUTICASONE PROPIONATE NA SPR 16 GM BTL SCH (08:12)
[2018-09-21] MEDS: FOLIC ACID 1 MG TAB PO SCH (08:12)
--- NOTE | 2018-09-21 08:12 | Orthopedic Progress Note ---
Date of Service September 21, 2018 Assessment & Plan (1) Osteoarthritis of left knee: Postop day 2 status post left TKA. PT/OT protocols. Weightbearing as tolerated. DVT prophylaxis with rivaroxaban, SCDs, VAISHNAVI hose. Continue current pain regimen. DC planning-patient is planning for outpatient PT upon discharge. Plan for discharge today. Subjective Postop day 2 status post left total knee arthroplasty. Patient is currently sitting up at the bedside talking on the phone. Spirits and feeling well. Pain is controlled. Denies shortness of breath, chest pain, lightheadedness. She is hoping to go home today. Physical Exam Physical Exam: Nicole dressing is, dry and intact and functioning well. No overt drainage in the collection unit. Calves are soft and nontender. Neurovascular intact. Toes are mobile. Results & Data Vital Signs (Past 12 Hours) Vital Signs Temp Pulse Resp BP Pulse Ox 09/21/18 06:29 36.6 C 66 18 128/83 99 09/20/18 23:25 36.9 C 70 14 123/76 99
--- NOTE | 2018-09-30 17:55 | Discharge Summary ---
HISTORY OF PRESENT ILLNESS: This is a 57-year-old female patient of Dr. Ladd's complaining of chronic left knee pain, longstanding, now progressively getting worse. The patient failed conservative treatment and elected to proceed with a left total knee arthroplasty. PAST MEDICAL HISTORY: Hypertension, asthma, sleep apnea, anxiety, peripheral neuropathy, seizure disorder, osteoarthritis, spine problems, sciatica, acid reflux, hiatal hernia and obesity. POSTOPERATIVE COURSE: The patient underwent a left total knee arthroplasty on 09/19/2018. She was followed closely with medical consultation, physical therapy, pain control and DVT prophylaxis in the form of Xarelto. The patient did well postoperatively and was discharged on postoperative day #2. PHYSICAL EXAMINATION: On discharge, the patient's left knee superficial wound VAC was clean, dry and intact. It was holding suction well. There was no redness or drainage. She had no calf tenderness. Negative Homans sign. Toes and ankle were mobile. Neurologically and neurovascularly she is intact in her left lower extremity. DIAGNOSES: Status post left total knee arthroplasty, hypertension, asthma, sleep apnea, anxiety, peripheral neuropathy, seizure disorder, osteoarthritis, spine problems, sciatica, acid reflux, hiatal hernia and obesity. PLAN: The patient was discharged home. She will continue her preadmission medications with the addition of Xarelto for DVT prophylaxis. She will also have pain medications and she will follow up with Dr. Ladd as an outpatient.
== END 2018-09-21 10:41 | disposition home or self-care (01) | DRG 470 ==
LOC: ASU 07:32 → 3E 12:18